=== PATIENT | male | born 1965 | race Caucasian/White ===

== ENCOUNTER 2024-10-19 13:43 | Emergency (ER) | payer MEDICARE, OTHER | END 2024-10-19 18:22 | disposition home or self-care (01) | LOC: ED 13:43 | DX: R53.83 Other fatigue (principal); E03.9 Hypothyroidism, unspecified; F43.10 Post-traumatic stress disorder, unspecified; Z79.51 Long term (current) use of inhaled steroids; Z79.899 Other long term (current) drug therapy ==

== ENCOUNTER 2024-11-23 20:41 | Emergency (ER) | payer MEDICARE, OTHER ==
[~2024-11-23] VITALS: Ht 162.6 cm; Wt 53.5 kg
[~2024-11-23 20:41] MED LIST: ANTIFUNGAL TOP; BETAMETHASONE D15 G2 TOP; CALCIUM 600 MG1 EAC7 PO; CLOTRIMAZOLE45 G1 TOP; DONEPEZIL HCL10 MG PO; EAR DROPS15 ML OU; ELIQUIS5 MG PO; FLUTICASONE PRO16 GM NAS; IBUPROFEN600 MG PO; KETOCONAZOLE120 ML TOP; LEVOTHYROXINE125 MCG PO; LEVOTHYROXINE150 MC1 PO; LORATADINE10 MG PO; METRONIDAZOLE45 G1 TOP; MONTELUKAST SOD10 MG PO; ONDANSETRON HCL4 MG PO; ONDANSETRON ODT4 MG PO; PREVIDENT 500051 GM MM; REFRESH OPTIVE10 ML OU; REGULOID POWDE PO; RISPERIDONE1 MG PO; SERTRALINE HCL50 MG PO; VITAMIN D21250 MCG PO
--- OUTSIDE RECORDS SUMMARY | 2024-11-23 20:47 | XMS ---
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 PHONE: [phone] MARILYNN OJEDA Physician Assistant Guerline Moran PHONE: Unknown [facility] <UNAVAIL> PHONE: [phone] Apolinar has no Care Guidelines for this patient. Norman VISIT COUNT (12 MO.) [address] [place] [address] MELODY Layton TOTAL 7 NOTE: Visits indicate total known visits. ED/UCC VISIT TRACKING (12 MO.) 11/23/2024 20:41 MELODY Aj [place] TYPE: Emergency COMPLAINT: - SOB,CHEST PAIN 10/19/2024 13:43 MELODY Aj [place] TYPE: Emergency COMPLAINT: - WEAKNESS DIAGNOSES: - Hypothyroidism, unspecified - custodial (current) use of inhaled steroids - Other fatigue - Other superintendent terminal (current) drug therapy - Post-traumatic stress disorder, unspecified - Weakness 09/27/2024 05:40 [employer] [place] TYPE: Emergency DIAGNOSES: - Pneumonia, unspecified organism - ABD PAIN 09/08/2024 02:48 [employer] [place] TYPE: Emergency DIAGNOSES: - Pleural effusion, not elsewhere classified - Single subsegmental pulmonary embolism without acute cor pulmonale - abd pain - general 08/29/2024 04:53 [employer] [place] TYPE: Emergency DIAGNOSES: - Down syndrome, unspecified - Personal history of other mental and behavioral disorders - Pneumonitis due to inhalation of food and vomit - Shortness of Breath 06/06/2024 15:40 [facility] [place] TYPE: Emergency DIAGNOSES: - Acute gastritis without bleeding - Nausea with vomiting, unspecified - FEVER VOMITING 02/01/2024 18:34 [facility] [place] TYPE: Emergency DIAGNOSES: - Crushing injury of right hand, initial encounter - Laceration without foreign body of right middle finger without damage to nail, initial encounter - Finger injury INPATIENT VISIT TRACKING (12 MO.) 08/29/2024 10:10 Nancy [facility]IVERA TYPE: Medical Surgical COMPLAINT: - aspiration PNAw/ hx of down syndrome and schizophrenia DIAGNOSES: 0. Pneumonitis due to inhalation of food and vomit 1. Pneumonitis due to inhalation of food and vomit 2. Acidosis, unspecified 3. Down syndrome, unspecified 4. Unspecified dementia, unspecified severity, without behavioral disturbance, psychotic disturbance, mood disturbance, and anxiety 5. Schizophrenia, unspecified 6. Hypothyroidism, unspecified 7. Dermatitis, unspecified 8. Allergy to milk products 9. Hormone replacement therapy [email or web address]
[2024-11-23 21:17] LABS: BASOPHILS 0.4 % (0.2-1.2); EOSINOPHILS 0.3 % (0.8-7.0); HEMATOCRIT 39.1 % (40.1-51.0); HEMOGLOBIN 12.5 g/dL (13.7-17.5); LYMPHOCYTES 5.5 % (21.8-53.1); MCH 28.7 PG (25.7-32.2); MCV 89.9 fL (79.0-92.2); MONOCYTES 8.2 % (5.3-12.2); NEUTROPHILS 85.1 % (34.0-67.9); PLATELET COUNT 246 K/uL (163-337); RBC 4.35 M/uL (4.63-6.08)
[2024-11-23 21:27] LABS: INR 1.43 (0.80-1.30); PROTIME 16.5 Sec (11.2-14.2)
[2024-11-23 21:35] LABS: ALBUMIN 2.4 g/dL (3.4-5.0); ALBUMIN/GLOBULIN RATIO 0.56 (1.1-2.4); ALKALINE PHOSPHATASE 90 U/L (46-116); ALT (SGPT) 12 U/L (14-59); ANION GAP 11.7 (7-21); AST (SGOT) 18 U/L (15-37); BILIRUBIN, TOTAL 0.3 mg/dL (0.2-1.0); BUN/CREATININE RATIO 12.93 (6.0-28.6); CALCIUM 8.7 mg/dL (8.5-10.1); CARBON DIOXIDE 30 mmol/L (21-32); CHLORIDE 103 mmol/L (98-107); CREATININE, SERUM 1.16 mg/dL (0.70-1.30); GLOMERULAR FILTRATION RATE,EST 73 mL/min (>60); MAGNESIUM 1.7 mg/dL (1.8-2.4); POTASSIUM 3.7 mmol/L (3.5-5.1); PROTEIN, TOTAL 6.7 g/dL (6.4-8.2); UREA NITROGEN 15 mg/dL (7-18)
[2024-11-23 22:42] LABS: BILIRUBIN, URINE NEGATIVE (negative); BLOOD/HGB, URINE LARGE (Negative); KETONE, URINE NEGATIVE (Negative); LEUK ESTERASE, URINE SMALL (negative); NITRITE, URINE POSITIVE (negative)
[2024-11-23 22:47] LABS: BACTERIA, URINE 1+ /hpf (negative); CASTS, URINE NONE SEEN \\lpf; COLLECTION TYPE, URINE CLEAN CATCH; CRYSTALS, URINE NONE SEEN (0-1+); EPITHELIAL CELLS, URINE SQUAMOUS 1+ /lpf (0-1+); RED BLOOD CELLS, URINE >50 /hpf (0-5); REFLEX CULTURE, URINE Yes (No); WHITE BLOOD CELLS, URINE >50 /HPF (0-5)
[2024-11-23] MEDS ORDERED: CEFTRIAXONE SODIUM 2 GM in SODIUM CHLORIDE 0.9% 100 ML IV ONE (23:15)
[2024-11-23] MEDS ORDERED: SODIUM CHLORIDE 0.9% 1,000 ML IV PRN ×2 (23:15→23:30)
[2024-11-23] MEDS ORDERED: CEFDINIR 300 MG HOME.PACK PO ONE (23:45)
[2024-11-23] MEDS ORDERED: ONDANSETRON 4 MG HOME.PACK SL ONE (23:45)
[2024-11-23] MEDS ORDERED: ONDANSETRON ODT4 MG PO (23:54)
[2024-11-23] MEDS ORDERED: CEFDINIR300 MG PO (23:54)
[2024-11-24 00:14] VITALS: BP 105/65
--- NOTE | 2024-11-24 13:51 | EKG ---
[facility] [address] [facility] [place] [address] Signed Normal sinus rhythm Nonspecific T wave abnormality Abnormal ECG No previous ECGs available Confirmed by Chucho Westfall MD () on 11/24/2024 1:50:50 PM Electronically Signed By: CHUCHO WESTFALL MD 11/24/24 135 PATIENT NAME: ISIDRO CAGE Electrocardiogram DATE OF : 67 PHYSICIAN: CHUCHO WESTFALL MD REPORT #: [id number] REPORT IS CONFIDENTIAL AND NOT TO BE RELEASED WITHOUT AUTHORIZATION
== END 2024-11-24 00:15 | disposition home or self-care (01) ==
LOC: ED 20:41
PROVIDERS: Family Medicine
DX: N39.0 Urinary tract infection, site not specified (principal); E03.9 Hypothyroidism, unspecified; F43.10 Post-traumatic stress disorder, unspecified; Z79.51 Long term (current) use of inhaled steroids; Z79.899 Other long term (current) drug therapy
CPT/HCPCS: 36415; 51701; 70450; 71045; 74177; 80053; 81001; 83735; 84484; 85025; 85610; 87088; 87186; 93005; 93010; 99285-25; A9270; J0696; J7030; Q9967

== ENCOUNTER 2024-12-06 08:43 | Emergency (ER) | payer MEDICARE, OTHER ==
[~2024-12-06] VITALS: Ht 162.6 cm; Wt 53.5 kg
[~2024-12-06 08:43] MED LIST changes: +CEFDINIR300 MG PO
--- OUTSIDE RECORDS SUMMARY | 2024-12-06 08:50 | XMS ---
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 Events No recent Security Events currently on file CRITERIA MET - 6 ED Visits in 6 Months - [facility] - 2 Visits in 30 Days CARE PROVIDERS -[facility] Dentist: Dietitian [facility] PHONE: [phone] -Gwyn- Dentist: Dietitian [facility] PHONE: [phone] MARILYNN OJEDA Physician Driver'S Education Instructor Guerline Moran PHONE: Unknown [facility]/Center: [facility] WORKERS CLINIC [facility] ([facility]) <UNAVAIL> PHONE: [phone] Apolinar has no Care Guidelines for this patient. Norman VISIT COUNT (12 MO.) [address] [place] [address] 3 MELODY Layton TOTAL 8 NOTE: Visits indicate total known visits. ED/UCC VISIT TRACKING (12 MO.) 12/06/2024 08:43 MELODY Aj [place] TYPE: Emergency COMPLAINT: - ABD PAIN 11/23/2024 20:41 [facility] Aj [place] TYPE: Emergency COMPLAINT: - SOB,CHEST PAIN DIAGNOSES: - Chest pain, unspecified - Hypothyroidism, unspecified - penitentiary (current) use of inhaled steroids - Other prison (current) drug therapy - Post-traumatic stress disorder, unspecified - Urinary tract infection, site not specified 10/19/2024 13:43 M[facility] Aj [place] TYPE: Emergency COMPLAINT: - WEAKNESS DIAGNOSES: - Hypothyroidism, unspecified - roasterman (current) use of inhaled steroids - Other fatigue - Other prison (current) drug therapy - Post-traumatic stress disorder, unspecified - Weakness 09/27/2024 05:40 [facility] [place] TYPE: Emergency DIAGNOSES: - Pneumonia, unspecified organism - ABD PAIN 09/08/2024 02:48 [facility] [place] TYPE: Emergency DIAGNOSES: - Pleural effusion, not elsewhere classified - Single subsegmental pulmonary embolism without acute cor pulmonale - abd pain - general 08/29/2024 04:53 [facility] [place] TYPE: Emergency DIAGNOSES: - Down syndrome, unspecified - Personal history of other mental and behavioral disorders - Pneumonitis due to inhalation of food and vomit - Shortness of Breath 06/06/2024 15:40 [facility] [place] TYPE: Emergency DIAGNOSES: - Acute gastritis without bleeding - Nausea with vomiting, unspecified - FEVER VOMITING 02/01/2024 18:34 [facility] [place] TYPE: Emergency DIAGNOSES: - Crushing [...] to milk products 9. Hormone replacement therapy [email or web address]
[2024-12-06 09:58] LABS: BASOPHILS 1.1 % (0.2-1.2); EOSINOPHILS 1.9 % (0.8-7.0); LYMPHOCYTES 12.7 % (21.8-53.1); MCH 29.2 PG (25.7-32.2); MCHC 31.9 g/dL (32.3-36.5); MCV 91.3 fL (79.0-92.2); MONOCYTES 9.3 % (5.3-12.2); NEUTROPHILS 74.1 % (34.0-67.9); RBC 4.15 M/uL (4.63-6.08)
[2024-12-06 10:09] LABS: INR 1.22 (0.80-1.30); PROTIME 14.6 Sec (11.2-14.2)
[2024-12-06 10:19] LABS: ALT (SGPT) 16.0 U/L (14-59); AST (SGOT) 17.0 U/L (15-37); GLOMERULAR FILTRATION RATE,EST 80.0 mL/min (>60); PROTEIN, TOTAL 6.4 g/dL (6.4-8.2); UREA NITROGEN 12.0 mg/dL (7-18)
[2024-12-06 12:12] VITALS: BP 112/74
== END 2024-12-06 12:12 | disposition home or self-care (01) ==
LOC: ED 08:43
PROVIDERS: Emergency Medicine
DX: R10.84 Generalized abdominal pain (principal); L98.419 Non-pressure chronic ulcer of buttock with unspecified severity; F43.10 Post-traumatic stress disorder, unspecified; Z79.890 Hormone replacement therapy
CPT/HCPCS: 36415; 51702; 74177; 80053; 83690; 84484; 85025; 85610; 99284-25; Q9967

== ENCOUNTER 2024-12-17 10:43 | Emergency (ER) | payer MEDICARE, OTHER ==
[~2024-12-17] VITALS: Ht 162.6 cm; Wt 53.5 kg
--- OUTSIDE RECORDS SUMMARY | 2024-12-17 10:47 | XMS ---
PreManage Notification: ISIDRO CAGE Security Kennel Hand Events No recent Security Events currently on file CRITERIA MET - 6 ED Visits in 6 Months - [facility] - 2 Visits in 30 Days CARE PROVIDERS -[facility] Dentist: Systems Design Engineer [facility] [place] PHONE: [phone] -Gwyn- Dentist: Systems Design Engineer [facility] PHONE: [phone] MARILYNN OJEDA Physician Automobiles Salesperson Guerline Moran PHONE: Unknown [facility]/Center: [facility] WORKERS CLINIC [facility] ([facility]) <UNAVAIL> PHONE: [phone] Apolinar has no Care Guidelines for this patient. Norman VISIT COUNT (12 MO.) 5 [facility] 4 MELODY Layton TOTAL 9 NOTE: Visits indicate total known visits. 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 - Post-traumatic stress disorder, unspecified - Unspecified abdominal pain 11/23/2024 20:41 MELODY Aj [place] TYPE: Emergency COMPLAINT: - SOB,CHEST PAIN DIAGNOSES: - Chest pain, unspecified - Hypothyroidism, unspecified - middle or intermediate school principal (current) use of inhaled steroids - Other detention (current) drug therapy - Post-traumatic stress disorder, unspecified - Urinary tract infection, site not specified 10/19/2024 13:43 MELODY Aj [place] TYPE: Emergency COMPLAINT: - WEAKNESS DIAGNOSES: - Hypothyroidism, unspecified - middle or intermediate school principal (current) use of inhaled steroids - Other fatigue - Other exterminator helper (current) drug therapy - Post-traumatic stress disorder, unspecified - Weakness 09/27/2024 05:40 [facility] [employer] [place] TYPE: Emergency DIAGNOSES: - Pneumonia, unspecified organism - ABD PAIN 09/08/2024 02:48 [facility] [employer] [place] TYPE: Emergency DIAGNOSES: - Pleural effusion, not elsewhere classified - Single subsegmental pulmonary embolism without acute cor pulmonale - abd pain - general 08/29/2024 04:53 [facility] [place] TYPE: Emergency DIAGNOSES: - Down syndrome, unspecified - Personal history of other mental and behavioral disorders - Pneumonitis due to inhalation of food and vomit - Shortness of Breath 06/06/2024 15:40 [facility] [place] TYPE: Emergency DIAGNOSES: - Acute gastritis without bleeding - Nausea with vomiting, unspecified - FEVER VOMITING 02/01/2024 18:34 [facility] TYPE: Emergency DIAGNOSES: - Crushing injury of right hand, initial encounter - Laceration without foreign body of right middle finger without damage to nail, initial encounter - Finger injury INPATIENT VISIT TRACKING (12 MO.) 08/29/2024 10:10 Nancy [facility]ers [place] TYPE: Medical Surgical COMPLAINT: - aspiration PNAw/ [...] to milk products 9. Hormone replacement therapy [email or web address]
[2024-12-17 11:46] VITALS: BP 82/69
== END 2024-12-17 11:46 | disposition home or self-care (01) ==
LOC: ED 10:43
DX: L89.329 Pressure ulcer of left buttock, unspecified stage (principal); L89.319 Pressure ulcer of right buttock, unspecified stage; F43.10 Post-traumatic stress disorder, unspecified; E03.9 Hypothyroidism, unspecified; Z79.899 Other long term (current) drug therapy; Z79.51 Long term (current) use of inhaled steroids
CPT/HCPCS: 99283

== ENCOUNTER 2025-01-03 08:03 | Emergency (ER) | payer MEDICARE, OTHER ==
[~2025-01-03] VITALS: Ht 162.6 cm; Wt 54.7 kg
--- OUTSIDE RECORDS SUMMARY | 2025-01-03 08:10 | XMS ---
PreManage Notification: ISIDRO CAGE Security Denture Technician Events No recent Security Events currently on file CRITERIA MET - 6 ED Visits in 6 Months - [facility] - 2 Visits in 30 Days CARE PROVIDERS -[facility] Dentist: Filter Tender Current [place] PHONE: [phone] -[facility] Dentist: Filter Tender Current [place] PHONE: [phone] -Gwyn- Dentist: Filter Tender Current [facility] PHONE: [phone] MARILYNN OJEDA Physician Assistant Guerline Moran PHONE: Unknown [facility] Clinic[facility]Center: [facility] <[facility] PHONE: [phone] Apolinar has no Care Guidelines for this patient. EIda VISIT COUNT (12 MO.) 5 MELODY Ewing [facility] TOTAL 10 NOTE: Visits indicate total known visits. ED/UCC VISIT TRACKING (12 MO.) 01/03/2025 08:04 MELODY Aj [place] TYPE: Emergency COMPLAINT: - URINE PROBLEM 12/17/2024 10:44 M[facility]ODY Aj [place] TYPE: Emergency COMPLAINT: - SKIN PROBLEM DIAGNOSES: - Hypothyroidism, unspecified - penitentiary (current) use of inhaled steroids - Other long term care administrator (current) drug therapy - Post-traumatic stress disorder, unspecified - Pressure ulcer of left buttock, unspecified stage - Pressure ulcer of right buttock, unspecified stage - Unspecified abdominal pain 12/06/2024 08:43 [facility] [place] TYPE: Emergency [...] (current) use of inhaled steroids - Other long term care administrator (current) drug therapy - Post-traumatic stress disorder, unspecified - Urinary tract infection, site not specified 10/19/2024 13:43 [facility] Aj [place] TYPE: Emergency COMPLAINT: - WEAKNESS DIAGNOSES: - Hypothyroidism, unspecified - keno terminal operator (current) use of inhaled steroids - Other fatigue - Other long term care administrator (current) drug therapy - Post-traumatic stress disorder, unspecified - Weakness 09/27/2024 05:40 [facility] [place] TYPE: Emergency DIAGNOSES: - Pneumonia, unspecified organism - ABD PAIN 09/08/2024 02:48 [facility] [place] TYPE: Emergency DIAGNOSES: - Pleural effusion, not elsewhere classified - Single subsegmental pulmonary embolism without acute cor pulmonale - abd pain - general 08/29/2024 04:53 [facility] [place] TYPE: Emergency DIAGNOSES: - Down syndrome, unspecified - Personal history of other mental and behavioral disorders - Pneumonitis due to inhalation of food and vomit - Shortness of Breath 06/06/2024 15:40 [facility] [place] TYPE: Emergency DIAGNOSES: - Acute gastritis without bleeding - Nausea with vomiting, unspecified - FEVER VOMITING 02/01/2024 18:34 [facility] [place] TYPE: Emergency DIAGNOSES: - Crushing injury of right hand, initial encounter - Laceration without foreign body of right middle finger without damage to nail, initial encounter - Finger injury INPATIENT VISIT TRACKING (12 MO.) 08/29/2024 10:10 Nancy Bradley Robinson [place] TYPE: Medical Surgical COMPLAINT: - aspiration [...] to milk products 9. Hormone replacement therapy [email or web address]
[2025-01-03] MEDS ORDERED: LEVOTHYROXINE175 MCG PO (08:25)
[2025-01-03 09:26] LABS: BLOOD/HGB, URINE SMALL (Negative); KETONE, URINE NEGATIVE (Negative); LEUK ESTERASE, URINE NEGATIVE (negative); NITRITE, URINE NEGATIVE (negative)
[2025-01-03 09:32] LABS: BACTERIA, URINE NONE SEEN /hpf (negative); CASTS, URINE NONE SEEN \\lpf; CRYSTALS, URINE NONE SEEN (0-1+); EPITHELIAL CELLS, URINE SQUAMOUS 1+ /lpf (0-1+); REFLEX CULTURE, URINE No (No)
[2025-01-03 10:20] VITALS: BP 106/72
== END 2025-01-03 10:20 | disposition home or self-care (01) ==
LOC: ED 08:03
PROVIDERS: Emergency Medicine
DX: R31.9 Hematuria, unspecified (principal); F43.10 Post-traumatic stress disorder, unspecified; G47.33 Obstructive sleep apnea (adult) (pediatric); Z79.899 Other long term (current) drug therapy
CPT/HCPCS: 51798; 81001; 99283

== ENCOUNTER 2025-03-12 13:26 | Emergency (ER) | payer MEDICARE, OTHER ==
[~2025-03-12] VITALS: Ht 162.6 cm; Wt 54.7 kg
--- OUTSIDE RECORDS SUMMARY | ~2025-03-12 | XMS | Continuity of Care Document ---
Demographics + + + | Address | [address] | | | [place] [address] | + + + | Preferred Language | Unknown | + + + | Marital Status | Never | + + + | Hoahaoism Affiliation | Unknown | + + + | Race | White | + + + | Ethnic Group | Not or | + + + Author + + + | Author | [facility] | + + + | Organization | [facility] | + + + | Address | [address] | | | [place] [address] | + + + | Phone | | + + + Care Team Providers + + + + | Care Business Information Consultant Name | Role | Phone | + [...] | [facility] - | | | | [facility] | + + + + | (no date) | ONDANSETRON | [facility] | | | | [facility] | + + + + | (no date) | KETOCONAZOLE | [facility] | | | | [facility] | + + + + | (no date) | KETOCONAZOLE | [facility] | | | | [facility] | + + + + | (no date) | | [facility] | | | CARBOXYMETHYL/GLYCERIN/POLY | [facility] | | | 80 | | + + + + | (no date) | | [facility] | | | CARBOXYMETHYL/GLYCERIN/POLY | [facility] | | | 80 | | + + + + | (no date) | APIXABAN | [facility] | | | | [facility] | + + + + | (no date) | APIXABAN | [facility] | | | | [facility] | + + + + | (no date) | Ergocalciferol (Vitamin | [facility] | | | D2) | [facility] | + + + + | (no date) | Ergocalciferol (Vitamin | [facility] | | | D2) | [facility] | + + + + | (no date) | FLUTICASONE PROPIONATE 50 | [facility] | | | MCG | [facility] | + + + + | (no date) | FLUTICASONE PROPIONATE 50 | [facility] | | | MCG | [facility] | + + + + | (no date) | IBUPROFEN | [facility] | | | | [facility] | + + + + | (no date) | IBUPROFEN | [facility] | | | | [facility] | + + + + | (no date) | MONTELUKAST SODIUM | [facility] | | | | [facility] | + + + + | (no date) | MONTELUKAST SODIUM | [facility] | | | | [facility] | + + + + | (no date) | BETAMETHASONE DIPROPIONATE | [facility] | | | | [facility] | + + + + | (no date) | BETAMETHASONE DIPROPIONATE | [facility] | | | | [facility] | + + + + | (no date) | Clotrimazole | [facility] | | | | [facility] | + + + + | (no date) | Clotrimazole | [facility] | | | | [facility] | + + + + | (no date) | LORATADINE | [facility] | | | | [facility] | + + + + | (no date) | LORATADINE | [facility] | | | | [facility] | + + + + | (no date) | METRONIDAZOLE | [facility] | | | | [facility] | + + + + | (no date) | METRONIDAZOLE | [facility] | | | | [facility] | + + + + | (no date) | RISPERIDONE | [facility] | | | | [facility] | + + + + | (no date) | RISPERIDONE | [facility] | | | | [facility] | + + + + | (no date) | SERTRALINE HCL | [facility] | | | | [facility] | + + + + | (no date) | SERTRALINE HCL | [facility] | | | | [facility] | + + + + | (no date) | TOLNAFTATE | [facility] | | | | [facility] | + + + + | (no date) | TOLNAFTATE | [facility] | | | | [facility] | + + + + | (no date) | Tolnaftate | [facility] | | | | [facility] | + + + + | (no date) | Tolnaftate | [facility] | | | | [facility] | + + + + | (no date) | Calcium Carbonate/Vitamin | [facility] | | | D3 | [facility] | + + + + | (no date) | Calcium Carbonate/Vitamin | [facility] | | | D3 | [facility] | + + + + | (no date) | SODIUM FLUORIDE | [facility] | | | | [facility] | + + + + | (no date) | SODIUM FLUORIDE | [facility] | | | | [facility] | + + + + | (no date) | CARBAMIDE PEROXIDE | [facility] | | | | [facility] | + + + + | (no date) | CARBAMIDE PEROXIDE | [facility] | | | | [facility] | + + + + | (no date) | LEVOTHYROXINE SODIUM | [facility] | | | | [facility] | + + + + | (no date) | LEVOTHYROXINE SODIUM | [facility] | | | | [facility] | + + + + | (no date) | LEVOTHYROXINE SODIUM | [facility] | | | | [facility] | + + + + | (no date) | LEVOTHYROXINE SODIUM | [facility] | | | | [facility] | + + + + | (no date) | DONEPEZIL HCL | [facility] | | | | [facility] | + + + + | (no date) | DONEPEZIL HCL | [facility] | | | | [facility] | + + + + Problems + + + + | date | description | facility | + + + + | 2024-12-17 00:00 | Pressure injury of skin of | [facility] | | | buttock | [facility] | + + + + | 2024-12-17 00:00 | Pressure injury of skin of | [facility] | | | buttock | [facility] | + + + + | 2025-01-03 00:00 | Hematuria | [facility] | | | | [facility] | + + + + | 2025-01-03 00:00 | Hematuria | [facility] | | | | [facility] | + + + + Procedures [...] 5 | + + + + + +---------+ [...] | (missing) | | UrnS Micro | 09:21:07 | [facility] | | [...] 15 | + + + + + +---------+ [...] | (missing) | | Ql Strip | :21:07 | [facility] | [facility] | | | | + + + + + + + + + | Result panel 17 | + + + + + + + + + | Courtney Ur | 2025-01-03 | | NEGATIVE | [...] + + + + + + | [facility] | 2025-01-03 | | NEGATIVE | [...] 19 | + + + + + +---------+ [...] 20 | + + + + + +---------+ [...] 21 | + + + + + +-------+ [...] 0-1 | (missing) | (missing) | | [facility] | 09:21:07 | [facility] | | | | | [...] | (missing) | | Danya Micro | :21:07 | [facility] | | | [...] 33 | + + + + + +------+ + + | Bacteria Ur | 2025-01-03 | | No | (missing) | (missing) | | Cult | 09:21:07 | [facility] | [facility] | | | | + + + +------+ + + + + | Result panel 34 | + + + + + + [...] + + + + + + | Lazaro Rodriguez | 2025-01-03 | | NEGATIVE | [...] 37 | + + + + + +---------+ + + | Luis Miguel Rodriguez | 2025-01-03 | | 1.020 | (missing) | (missing) | | Strip | 09:21:07 | [facility] | [facility] | | | | + + + +---------+ + + + + | Result panel 38 | + + + + + +---------+ [...] NEGATIVE | (missing) | (missing) | | Strip-stephanie | 09:21:07 | [facility] | | | [...] | [facility] - | | | | [facility] | + + + + | (no date) | Unknown if ever smoked | [facility] | | | | [facility] | + + + + Vital Signs + + + +---------+ | date | measurement | value | units | + + + +---------+ | 2024-12-17 00:00 | BMI | 20.2 | kg/m2 | + + + +---------+ | 2024-12-17 00:00 | BP_diastolic | 69 | mmHg | + + + +---------+ | 2024-12-17 00:00 | BP_systolic | 82 | mmHg | + + + +---------+ | 2024-12-17 00:00 | heart_rate | 74 | /min | + + + +---------+ | 2024-12-17 00:00 | height_metric | 162.56 | cm | + + + +---------+ | 2024-12-17 00:00 | height_standard | 64 | in | + + + +---------+ | 2024-12-17 00:00 | o2_saturation | 100 | % | + + + +---------+ | 2024-12-17 00:00 | respiration_rate | 18 | /min | + + + +---------+ | 2024-12-17 00:00 | temperature_metric | 36.67 | C | | | | | | + + + +---------+ | 2024-12-17 00:00 | | 98 | F | | | temperature_standar | | | | | d | | | + + + +---------+ | 2024-12-17 00:00 | weight_metric | 53.5 | kg | + + + +---------+ | 2024-12-17 00:00 | weight_standard | 117.95 | lb | + + + +---------+ [...]
[~2025-03-12 13:26] MED LIST changes: +LEVOTHYROXINE175 MCG PO
--- OUTSIDE RECORDS SUMMARY | 2025-03-12 13:33 | XMS ---
PreManage Notification: ISIDRO CAGE Security Straightening Machine Operator Events No recent Security Events currently on file CRITERIA MET - 6 ED Visits in 6 Months CARE PROVIDERS -[facility] Dentist: Service Advocate Contact Guerline Pascal PHONE: [phone] -[facility] Dentist: Service Advocate Contact Guerline Yung PHONE: [phone] -Gwyn- Dentist: Service Advocate Contact Current [facility] PHONE: [phone] MAIRLYNN OJEDA Physician Video Game Developer Guerline Moarn PHONE: Unknown [facility] Clinic[facility] Qualified [facility] Current WORKERS CLINIC [facility] ([facility]) <UNAVAIL> PHONE: [phone] Apolinar has no Care Guidelines for this patient. Norman VISIT COUNT (12 MO.) 6 MELODY [facility] TOTAL 10 NOTE: Visits indicate total known visits. ED/UCC VISIT TRACKING (12 MO.) 03/12/2025 13:27 MELODY Aj [place] TYPE: Emergency COMPLAINT: - BLOOD IN URINE 01/03/2025 08:04 M[facility]ODY Aj [place] TYPE: Emergency COMPLAINT: - URINE PROBLEM DIAGNOSES: - Asymptomatic microscopic hematuria - Hematuria, unspecified - Obstructive sleep apnea (adult) (pediatric) - Other truck terminal manager (current) drug therapy - Post-traumatic stress disorder, unspecified - Sleep apnea, unspecified 12/17/2024 10:44 MELODY Aj [place] TYPE: Emergency COMPLAINT: - SKIN PROBLEM DIAGNOSES: - Hypothyroidism, unspecified - snf (current) use of inhaled steroids - Other chcf (current) drug therapy - Post-traumatic stress disorder, [...] Chest pain, unspecified - Hypothyroidism, unspecified - snf (current) use of inhaled steroids - Other chcf (current) drug therapy - Post-traumatic stress disorder, unspecified - Urinary tract infection, site not specified 10/19/2024 13:43 MELODY Aj [place] TYPE: Emergency COMPLAINT: - WEAKNESS DIAGNOSES: - Hypothyroidism, unspecified - snf (current) use of inhaled steroids - Other fatigue - Other chcf (current) drug therapy - Post-traumatic stress disorder, unspecified - Weakness 09/27/2024 05:40 [facility] [place] TYPE: Emergency DIAGNOSES: - Pneumonia, unspecified organism - ABD PAIN 09/08/2024 02:48 [facility] [place] TYPE: Emergency DIAGNOSES: - Pleural effusion, not elsewhere classified - Single subsegmental thrombotic pulmonary embolism without acute cor pulmonale - abd pain - general 08/29/2024 04:53 [facility] [place] TYPE: Emergency DIAGNOSES: - Down syndrome, unspecified - Personal history of other mental and behavioral disorders - Pneumonitis due to inhalation of food and vomit - Shortness of Breath 06/06/2024 15:40 [facility] [place] TYPE: Emergency DIAGNOSES: - Acute gastritis without bleeding - Nausea with vomiting, unspecified - FEVER VOMITING INPATIENT VISIT TRACKING (12 MO.) 08/29/2024 10:10 Nancy Bradley Robinson [place] TYPE: Medical Surgical COMPLAINT: - aspiration PNAw/ [...] to milk products 9. Hormone replacement therapy [email or web address]
[2025-03-12 14:08] LABS: BLOOD/HGB, URINE MODERATE (Negative); KETONE, URINE NEGATIVE (Negative); LEUK ESTERASE, URINE NEGATIVE (negative); NITRITE, URINE NEGATIVE (negative)
[2025-03-12 14:16] LABS: BACTERIA, URINE NONE SEEN /hpf (negative); CASTS, URINE NONE SEEN \\lpf; CRYSTALS, URINE NONE SEEN (0-1+); EPITHELIAL CELLS, URINE SQUAMOUS 1+ /lpf (0-1+); REFLEX CULTURE, URINE No (No)
[2025-03-12 15:35] VITALS: BP 105/83
== END 2025-03-12 15:36 | disposition home or self-care (01) ==
LOC: ED 13:26
PROVIDERS: Emergency Medicine
DX: R31.29 Other microscopic hematuria (principal); E03.9 Hypothyroidism, unspecified; Z79.890 Hormone replacement therapy; Z79.899 Other long term (current) drug therapy
CPT/HCPCS: 81001; 99283

== ENCOUNTER 2025-03-30 17:12 | Emergency (ER) | payer MEDICARE, OTHER ==
[~2025-03-30] VITALS: Ht 162.6 cm; Wt 52.5 kg
--- OUTSIDE RECORDS SUMMARY | ~2025-03-30 | XMS | Continuity of Care Document ---
Demographics + + + | Address | [address] | | | [place] [address] | + + + | Preferred Language | Unknown | + + + | Marital Status | Never | + + + | Hoahaoism Affiliation | Unknown | + + + | Race | White | + + + | Ethnic Group | Not or | + + + Author + + + | Author | [facility] | + + + | Organization | [facility] | + + + | Address | [address] | | | [place] [address] | + + + | Phone | | + + + Care Team Providers + + + + | Care Drum Maker Name | Role | Phone | + + + + Unavailable | Unavailable | + + + + Unavailable | Unavailable | + + + + Unavailable | Unavailable | + + + + Allergies and Intolerances + + + + + + | date | description | facility | reaction | severity | + + + + + + | 2025-01-03 | UNK | [facility] - | (no [...] (no date) | ONDANSETRON | [facility] - | | | | [facility] | + + + + | (no date) | ONDANSETRON | [facility] | | | | [facility] | + + + + | (no date) | KETOCONAZOLE | [facility] | | | | [facility] | + + + + | (no date) | KETOCONAZOLE | [facility] | | | | [facility] | + + + + | (no date) | | [facility] | | | CARBOXYMETHYL/GLYCERIN/POLY | [facility] | | | 80 | | + + + + | (no date) | | [facility] | | | CARBOXYMETHYL/GLYCERIN/POLY | [facility] | | | 80 | | + + + + | (no date) | APIXABAN | [facility] | | | | [facility] | + + + + | (no date) | APIXABAN | [facility] | | | | [facility] | + + + + | (no date) | Ergocalciferol (Vitamin | [facility] | | | D2) | [facility] | + + + + | (no date) | Ergocalciferol (Vitamin | [facility] | | | D2) | [facility] | + + + + | (no date) | FLUTICASONE PROPIONATE 50 | [facility] | | | MCG | [facility] | + + + + | (no date) | FLUTICASONE PROPIONATE 50 | [facility] | | | MCG | [facility] | + + + + | (no date) | IBUPROFEN | [facility] | | | | [facility] | + + + + | (no date) | IBUPROFEN | [facility] | | | | [facility] | + + + + | (no date) | MONTELUKAST SODIUM | [facility] | | | | [facility] | + + + + | (no date) | MONTELUKAST SODIUM | [facility] | | | | [facility] | + + + + | (no date) | BETAMETHASONE DIPROPIONATE | [facility] | | | | [facility] | + + + + | (no date) | BETAMETHASONE DIPROPIONATE | [facility] | | | | [facility] | + + + + | (no date) | Clotrimazole | [facility] | | | | [facility] | + + + + | (no date) | Clotrimazole | [facility] | | | | [facility] | + + + + | (no date) | LORATADINE | [facility] | | | | [facility] | + + + + | (no date) | LORATADINE | [facility] | | | | [facility] | + + + + | (no date) | METRONIDAZOLE | [facility] | | | | [facility] | + + + + | (no date) | METRONIDAZOLE | [facility] | | | | [facility] | + + + + | (no date) | RISPERIDONE | [facility] | | | | [facility] | + + + + | (no date) | RISPERIDONE | [facility] | | | | [facility] | + + + + | (no date) | SERTRALINE HCL | [facility] | | | | [facility] | + + + + | (no date) | SERTRALINE HCL | [facility] | | | | [facility] | + + + + | (no date) | TOLNAFTATE | [facility] | | | | [facility] | + + + + | (no date) | TOLNAFTATE | [facility] | | | | [facility] | + + + + | (no date) | Tolnaftate | [facility] | | | | [facility] | + + + + | (no date) | Tolnaftate | [facility] | | | | [facility] | + + + + | (no date) | Calcium Carbonate/Vitamin | [facility] | | | D3 | [facility] | + + + + | (no date) | Calcium Carbonate/Vitamin | [facility] | | | D3 | [facility] | + + + + | (no date) | SODIUM FLUORIDE | [facility] | | | | [facility] | + + + + | (no date) | SODIUM FLUORIDE | [facility] | | | | [facility] | + + + + | (no date) | CARBAMIDE PEROXIDE | [facility] | | | | [facility] | + + + + | (no date) | CARBAMIDE PEROXIDE | [facility] | | | | [facility] | + + + + | (no date) | LEVOTHYROXINE SODIUM | [facility] | | | | [facility] | + + + + | (no date) | LEVOTHYROXINE SODIUM | [facility] | | | | [facility] | + + + + | (no date) | LEVOTHYROXINE SODIUM | [facility] | | | | [facility] | + + + + | (no date) | LEVOTHYROXINE SODIUM | [facility] | | | | [facility] | + + + + | (no date) | DONEPEZIL HCL | [facility] | | | | [facility] | + + + + | (no date) | DONEPEZIL HCL | [facility] | | | | [facility] | + + + + Problems + + + + | date | description | facility | + + + + | 2025-01-03 00:00 | Hematuria | [facility] | | | | [facility] | + + + + | 2025-01-03 00:00 | Hematuria | [facility] | | | | [facility] | + + + + Procedures No information. Results/Labs +--------+--------+ +---------+--------+---------+ | test | date | facility | value | unit | notes | +--------+--------+ +---------+--------+---------+ + + | Result panel 1 | + + + + + + + + + | Color Ur | 2025-01-03 | | YELLOW | (missing) | (missing) | | Auto | 09:21:07 | [facility] | | | | + + + + + + + + + | Result panel 2 | + + + + + +---------+ + + | Character | 2025-01-03 | | CLEAR | (missing) | (missing) | | Ur | 09:21:07 | [facility] | [facility] | | | | + + + +---------+ + + + + | Result panel 3 | + + + + + + + + + | Glucose Ur | 2025-01-03 | | NEGATIVE | (missing) | (missing) | | Ql Strip | 09:21:07 | [facility] | | [facility] | | | | + + + + + + + + + | Result panel 4 | + + + + + + + + + | Courtney Rodriguez | 2025-01-03 | | NEGATIVE | (missing) | (missing) | | Ql Strip | 09:21:07 | [facility] | | [facility] | | [facility] | | | | + + + + + + + + + | Result panel 5 | + + + + + + + + + | Ketones Ur | 2025-01-03 | | NEGATIVE | (missing) | (missing) | | Ql Strip | 09:21:07 | [facility] | | | | [facility] | | | [facility] | | | | + + + + + + + + + | Result panel 6 | + + + + + +---------+ + + | Sp Gr Ur | 2025-01-03 | | 1.020 | (missing) | (missing) | | Strip | 09:21:07 | [facility] | | | [facility] | | | | + + + +---------+ + + + + | Result panel 7 | + + + + + +---------+ + + | Hgb Ur Ql | 2025-01-03 | | SMALL | (missing) | (missing) | | Strip | 09:21:07 | [facility] | | | [facility] | | | | + + + +---------+ + + + + | Result panel 8 | + + + + + +-------+ + + | pH Ur Strip | 2025-01-03 | | 6.5 | (missing) | (missing) | | | 09:21:07 | [facility] | | | | + + + +-------+ + + + + | Result panel 9 | + + + + + + + + + | Prot Ur | 2025-01-03 | | NEGATIVE | (missing) | (missing) | | Strip-mCnc | 09:21:07 | [facility] | | | [facility] | | | | + + + + + + + + + | Result panel 10 | + + + + + + + + + | | 2025-01-03 | | NORMAL | (missing) | (missing) | | Urobilinogen | 09:21:07 | [facility] | | | | | Ur | [facility] | Strip-[facility]nc | | [facility] | | | | + + + + + + + + + | Result panel 11 | + + + + + + + + + | Nitrite Ur | 2025-01-03 | | NEGATIVE | (missing) | (missing) | | Ql Strip | 09:21:07 | [facility] | | | | + + + + + + + + + | Result panel 12 | + + + + + + + + + | Leukocyte | 2025-01-03 | | NEGATIVE | (missing) | (missing) | | esterase Ur | 09:21:07 | [facility] | | | | | Ql Strip | [facility] | [facility] | | | | + + + + + + + + + | Result panel 13 | + + + + + +---------+ + + | RBC #/area | 2025-01-03 | | 12-20 | (missing) | (missing) | | UrnS HPF | 09:21:07 | [facility] | | | | | | [facility] | | | | + + + +---------+ + + + + | Result panel 14 | + + + + + +-------+ + + | WBC #/area | 2025-01-03 | | 0-1 | (missing) | (missing) | | UrnS HPF | 09:21:07 | [facility] | | | [facility] | | | | + + + +-------+ + + + + | Result panel 15 | + + + + + + + + + | Epi Cells | 2025-01-03 | | SQUAMOUS 1+ | (missing) | (missing) | | #/area UrnS | 09:21:07 | [facility] | | | | | HPF | [facility] | | [facility] | | | | + + + + + + + + + | Result panel 16 | + + + + + + + + + | Crystals | 2025-01-03 | | NONE SEEN | (missing) | (missing) | | UrChe Micro | 09::07 | [facility] | | | | | | | - | | | | | | | [facility] | | | | + + + + + + + + + | Result panel 17 | + + + + + + + + + | Bacteria | 2025-01-03 | | NONE SEEN | (missing) | (missing) | | #/area UrnS | : | [facility] | | | | | HPF [facility] | | | | + + + + + + + + + | Result panel 18 | + + + + + + + + + | Casts | 2025-01-03 | | NONE SEEN | (missing) | (missing) | | #/area UrnS | ::07 | [facility] | | | | | LPF | [facility] | | [facility] | | | | + + + + + + + + + | Result panel 19 | + + + + + +------+ + + | Bacteria Ur | 2025-01-03 | | No | (missing) | (missing) | | Cult | :21:07 | [facility] | | | | | [facility] | [facility] | | | | + + + +------+ + + + + | Result panel 20 | + + + + + + + + + | Urn Spec | 2025-01-03 | | CLEAN CATCH | (missing) | (missing) | | Collect Meth | 09:21:07 | [facility] | | | | | Ur | [facility] | | [facility] | | | | + + + + + + + + + | Result panel 21 | + + + + + + + + + | Color Ur | 2025-01-03 | | YELLOW | (missing) | (missing) | | Auto | 09:21:07 | [facility] | | | | | [facility] | | [facility] | | | | + + + + + + + + + | Result panel 22 | + + + + + +---------+ + + | Character | 2025-01-03 | | CLEAR | (missing) | (missing) | | Ur | 09:21:07 | [facility] | | | [facility] | | | | + + + +---------+ + + + + | Result panel 23 | + + + + + + + + + | Glucose Ur | 2025-01-03 | | NEGATIVE | (missing) | (missing) | | Ql Strip | 09::07 | [facility] | | | | | [facility] | [facility] | | | | + + + + + + + + + | Result panel 24 | + + + + + + + + + | Bilirub Ur | 2025-01-03 | | NEGATIVE | (missing) | (missing) | | Ql Strip | ::07 | [facility] | | | | | | [facility] | [facility] | | | | + + + + + + + + + | Result panel 25 | + + + + + + + + + | Ketones Ur | 2025-01-03 | | NEGATIVE | (missing) | (missing) | | Ql Strip | 09:21:07 | [facility] | | | | | [facility] | | | | + + + + + + + + + | Result panel 26 | + + + + + +---------+ + + | Sp Gr Ur | 2025-01-03 | | 1.020 | (missing) | (missing) | | Strip | 09:21:07 | [facility] | | | [facility] | | | | + + + +---------+ + + + + | Result panel 27 | + + + + + +---------+ + + | Hgb Ur Ql | 2025-01-03 | | SMALL | (missing) | (missing) | | Strip | 09:21:07 | [facility] | | | | | | [facility] | | | | + + + +---------+ + + + + | Result panel 28 | + + + + + +-------+ + + | pH Ur Strip | 2025-01-03 | | 6.5 | (missing) | (missing) | | | 09:21:07 | [facility] | | | [facility] | | | | + + + +-------+ + + + + | Result panel 29 | + + + + + + + + + | Prot Ur | 2025-01-03 | | NEGATIVE | (missing) | (missing) | | [facility] | 09:21:07 | [facility] | | | [facility] | | | | + + + + + + + + + | Result panel 30 | + + + + + + + + + | | 2025-01-03 | | NORMAL | (missing) | (missing) | | Urobilinogen | 09:21:07 | [facility] | | | | | Ur | | - [facility] | [facility] | | [facility] | [facility] | | | | + + + + + + + + + | Result panel 31 | + + + + + + + + + | Nitrite Ur | 2025-01-03 | | NEGATIVE | (missing) | (missing) | | Ql Strip | 09:21:07 | [facility] | | | | | [facility] | | | | + + + + + + + + + | Result panel 32 | + + + + + + + + + | Leukocyte | 2025-01-03 | | NEGATIVE | (missing) | (missing) | | esterase Ur | 09:21:07 | [facility] | | | | | Ql Strip | [facility] | [facility] | | | | + + + + + + + + + | Result panel 33 | + + + + + +---------+ + + | RBC #/area | 2025-01-03 | | 12-20 | (missing) | (missing) | | UrnS HPF | 09:21:07 | [facility] | | | | | | [facility] | | | | + + + +---------+ + + + + | Result panel 34 | + + + + + +-------+ + + | WBC #/area | 2025-01-03 | | 0-1 | (missing) | (missing) | | UrnS HPF | 09:21:07 | [facility] | | | | + + + +-------+ + + + + | Result panel 35 | + + + + + + + + + | Epi Cells | 2025-01-03 | | SQUAMOUS 1+ | (missing) | (missing) | | #/area UrnS | 09:21:07 | [facility] | | | | | HPF | [facility] | | | | + + + + + + + + + | Result panel 36 | + + + + + + + + + | Crystals | 2025-01-03 | | NONE SEEN | (missing) | (missing) | | Danya Micro | 09:21:07 | [facility] | | | | [facility] | | | | + + + + + + + + + | Result panel 37 | + + + + + + + + + | Bacteria | 2025-01-03 | | NONE SEEN | (missing) | (missing) | | #/area UrnS | 09:: | [facility] | | | | | HPF | [facility] | | | | + + + + + + + + + | Result panel 38 | + + + + + + + + + | Casts | 2025-01-03 | | NONE SEEN | (missing) | (missing) | | #/area UrnS | ::07 | [facility] | | | | | LPF | [facility] | | [facility] | | | | + + + + + + + + + | Result panel 39 | + + + + + +------+ + + | Bacteria Ur | 2025-01-03 | | No | (missing) | (missing) | | Cult | :21:07 | [facility] | | | | | [facility] | | | | + + + +------+ + + + + | Result panel 40 | + + + + + + + + + | Urn Spec | 2025-01-03 | | CLEAN CATCH | (missing) | (missing) | | Collect Meth | 09:21:07 | [facility] | | | | | Ur | [facility] | [facility] | | | | + + + + + + + + + | Result panel 41 | + + + + + + [...] 42 | + + + + + + + + + | | 2025-03-12 | | NORMAL | (missing) | (missing) | | Urobilinogen | 14:00:07 | [facility] | | | | | Ur | | - | | | | | [facility]-[place] | | [facility] | | | | + + + + + + + + + | Result panel 43 | + + + + + + [...] 44 | + + + + + + [...] 45 | + + + + + +--------+ [...] 47 | + + + + + + [...] + + + + | Result panel 48 | + + + + + + + + + | Crystals | 2025-03-12 | | NONE SEEN | (missing) | (missing) | | Danya Micro | 14:00:07 | [facility] | | | | | [facility] | [facility] | | | | + + + + + + + + + | Result panel 49 | + + + + + + [...] 50 | + + + + + + [...] 51 | + + + + + +------+ [...] 52 | + + + + + +---------+ [...] + + + + | Result panel 53 | + + + + + + + + + | Urn Spec | 2025-03-12 | | CLEAN CATCH | (missing) | (missing) | | Collect Meth | 14:: | [facility] | | | | | Ur | [facility] | [facility] | | | | + + + + + + + + + | Result panel 54 | + + + + + + [...] 55 | + + + + + + [...] 56 | + + + + + + + + + | Ketones Michael | 2025-03-12 | | NEGATIVE | (missing) [...] 58 | + + + + + + + + + | Hgb Ur Ql | 2025-03-12 | | MODERATE | (missing) | (missing) | | Strip | 14::07 | [facility] | | | | [facility] | | | | + + + + + + + + + | Result panel 59 | + + + + + +-------+ [...] 60 | + + + + + + + + + | Prot Ur | 2025-03-12 | | NEGATIVE | (missing) | (missing) | | [facility] | 14:00:07 | [facility] | | | [...] date) | Unknown if ever smoked | [facility] | | | | [facility] | + + + + | (no date) | Unknown if ever smoked | [facility] | | | | [facility] | + + + + Vital Signs + + + +---------+ | date | measurement | value | units | + + + +---------+ | 2025-01-03 00:00 | BMI | 20.7 | kg/m2 | + + + +---------+ | 2025-01-03 00:00 | BP_diastolic | 72 | mmHg | + + + +---------+ | 2025-01-03 00:00 | BP_systolic | 106 | mmHg | + + + +---------+ | 2025-01-03 00:00 | heart_rate | 75 | /min | + + + +---------+ | 2025-01-03 00:00 | height_metric | 162.56 | cm | + + + +---------+ | 2025-01-03 00:00 | height_standard | 64 | in | + + + +---------+ | 2025-01-03 00:00 | o2_saturation | 98 | % | + + + +---------+ | 2025-01-03 00:00 | respiration_rate | 15 | /min | + + + +---------+ | 2025-01-03 00:00 | temperature_metric | 36.72 | C | | | | | | + + + +---------+ | 2025-01-03 00:00 | | 98.1 | F | | | temperature_standar | | | | | d | | | + + + +---------+ | 2025-01-03 00:00 | weight_metric | 54.74 | kg | + + + +---------+ | 2025-01-03 00:00 | weight_standard | 120.68 | lb | + + + +---------+ | 2025-01-03 00:00 | weight_standard | 120.681 | lb | + + + +---------+ | 2025-03-12 [...] 120.681 | lb | + + + +---------+"
--- OUTSIDE RECORDS SUMMARY | 2025-03-30 17:19 | XMS ---
PreManage Notification: ISIDRO CAGE [employer] Events No recent Security Events currently on file CRITERIA MET - 6 ED Visits in 6 Months - [facility] - 2 Visits in 30 Days CARE PROVIDERS -[facility] Dentist: [facility] Current [place] PHONE: [phone] -[facility] Dentist: [facility] Current Aga PHONE: [phone] -[facility]- Dentist: [facility] Current [facility] PHONE: [phone] MARILYNN OJEDA Physician Assistant Guerline Moran PHONE: Unknown [facility]> PHONE: [phone] Apolinar has no Care Guidelines for this patient. [place] VISIT COUNT (12 MO.) 7 [facility] TOTAL 11 NOTE: Visits indicate total known visits. ED/UCC VISIT TRACKING (12 MO.) 03/30/2025 17:13 [facility] [place] TYPE: Emergency COMPLAINT: - HIP INJURY 03/12/2025 13:27 [facility] [place] TYPE: Emergency COMPLAINT: - BLOOD IN URINE DIAGNOSES: - Hematuria, unspecified - Hormone replacement therapy - Hypothyroidism, unspecified - Other oil heaterman (current) drug therapy - Other microscopic hematuria 01/03/2025 08:04 [facility] [place] TYPE: Emergency COMPLAINT: - URINE PROBLEM DIAGNOSES: - Asymptomatic microscopic hematuria - Hematuria, unspecified - Obstructive sleep apnea (adult) (pediatric) - Other oil heaterman (current) drug therapy - Post-traumatic stress disorder, unspecified - Sleep apnea, unspecified 12/17/2024 10:44 [facility] [place] TYPE: Emergency COMPLAINT: - SKIN PROBLEM DIAGNOSES: - Hypothyroidism, unspecified - senior care (current) use of inhaled steroids - Other shelter (current) drug therapy - Post-traumatic stress disorder, unspecified - Pressure ulcer of left buttock, unspecified stage - Pressure ulcer of right buttock, unspecified stage - Unspecified abdominal pain 12/06/2024 08:[address] 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 [place] TYPE: Emergency COMPLAINT: - SOB,CHEST PAIN DIAGNOSES: - Chest pain, unspecified - Hypothyroidism, unspecified - senior care (current) use of inhaled steroids - Other shelter (current) drug therapy - Post-traumatic stress disorder, unspecified - Urinary tract infection, site not specified 10/19/2024 13:[address] [facility] [place] TYPE: Emergency COMPLAINT: - WEAKNESS DIAGNOSES: - Hypothyroidism, unspecified - senior care (current) use of inhaled steroids - Other fatigue - Other shelter (current) drug therapy - Post-traumatic stress disorder, unspecified - Weakness 09/27/2024 05:40 [facility] TYPE: Emergency DIAGNOSES: - Pneumonia, unspecified organism - ABD PAIN 09/08/2024 02:48 [facility] [place] TYPE: Emergency DIAGNOSES: - Pleural effusion, not elsewhere classified - Single subsegmental thrombotic pulmonary embolism without acute cor pulmonale - abd pain - general 08/29/2024 04:53 [facility] [place] TYPE: Emergency DIAGNOSES: - Down syndrome, unspecified - Personal history of other mental and behavioral disorders - Pneumonitis due to inhalation of food and vomit - Shortness of Breath 06/06/2024 15:40 [facility] [place] TYPE: Emergency DIAGNOSES: - Acute gastritis without bleeding - Nausea with vomiting, unspecified - FEVER VOMITING INPATIENT VISIT TRACKING (12 MO.) [facility] 10[facility] COMPLAINT: - aspiration PNAw/ [...] to milk products 9. Hormone replacement therapy [email or web address]
[2025-03-30] MEDS ORDERED: CETIRIZINE HCL10 MG PO (17:45)
[2025-03-30] MEDS ORDERED: ONDANSETRON ODT8 MG PO (17:48)
[2025-03-30 18:23] LABS: BASOPHILS 1.2 % (0.2-1.2); EOSINOPHILS 1.6 % (0.8-7.0); LYMPHOCYTES 22.9 % (21.8-53.1); MCH 28.9 PG (25.7-32.2); MCHC 32.5 g/dL (32.3-36.5); MCV 89.1 fL (79.0-92.2); MONOCYTES 9.3 % (5.3-12.2); NEUTROPHILS 64.0 % (34.0-67.9); RBC 4.70 M/uL (4.63-6.08)
[2025-03-30 18:49] LABS: ALT (SGPT) 8.0 U/L (14-59); AST (SGOT) 11.0 U/L (15-37); GLOMERULAR FILTRATION RATE,EST 76.0 mL/min (>60); PROTEIN, TOTAL 6.4 g/dL (6.4-8.2); TSH, 3RD GENERATION 0.136 uIU/mL (0.358-3.740); UREA NITROGEN 18.0 mg/dL (7-18)
[2025-03-30] MEDS ORDERED: SODIUM CHLORIDE 0.9% 1,000 ML IV PRN (19:15)
[2025-03-30 20:21] LABS: BLOOD/HGB, URINE NEGATIVE (Negative); KETONE, URINE TRACE (Negative); LEUK ESTERASE, URINE NEGATIVE (negative); NITRITE, URINE NEGATIVE (negative)
[2025-03-30 22:13] VITALS: BP 130/93
== END 2025-03-30 22:27 | disposition home or self-care (01) ==
LOC: ED 17:12
PROVIDERS: Emergency Medicine
DX: E86.0 Dehydration (principal); F43.10 Post-traumatic stress disorder, unspecified; G47.30 Sleep apnea, unspecified; Z79.899 Other long term (current) drug therapy
CPT/HCPCS: 36415; 70450; 71045; 80053; 81003; 82140; 84436; 84439; 84443; 85025; 99285-25; J7030

== ENCOUNTER 2025-04-13 16:47 | Emergency (ER) | payer MEDICARE, OTHER ==
[~2025-04-13] VITALS: Ht 162.6 cm; Wt 49.0 kg
--- OUTSIDE RECORDS SUMMARY | ~2025-04-13 | XMS | Continuity of Care Document ---
Demographics + + + | Address | [address] | | | [place] [address] | + + + | Preferred Language | Unknown | + + + | Marital Status | Never | + + + | Mosque Affiliation | Unknown | + + + | Race | White | + + + | Ethnic Group | Not or | + + + Author + + + | Author | [facility] | + + + | Organization | [facility] | + + + | Address | [address] | | | [place] [address] | + + + | Phone | | + + + Care Team Providers + + + + | Care Library Assistant Name | Role | Phone | + [...] | (no date) | CETIRIZINE HCL | [facility] | | | | [facility] | + + + + | (no date) | ONDANSETRON | [facility] | | | | [facility] | + + + + | (no date) | ONDANSETRON | [facility] | | | | [facility] | + + + + | (no date) | ONDANSETRON | [facility] | | | | [facility] | + + + + | (no date) | KETOCONAZOLE | [facility] | | | | [facility] | + + + + | (no date) | KETOCONAZOLE | [facility] | | | | [facility] | + + + + | (no date) | KETOCONAZOLE | [facility] | | | | [facility] | + + + + | (no date) | | [facility] | | | CARBOXYMETHYL/GLYCERIN/POLY | [facility] | | | 80 | | + + + + | (no date) | | [facility] | | | CARBOXYMETHYL/GLYCERIN/POLY | [facility] | | | 80 | | + + + + | (no date) | | [facility] | | | CARBOXYMETHYL/GLYCERIN/POLY | [facility] | | | 80 | | + + + + | (no date) | APIXABAN | [facility] | | | | [facility] | + + + + | (no date) | APIXABAN | [facility] | | | | [facility] | + + + + | (no date) | APIXABAN | [facility] | | | | [facility] | + + + + | (no date) | Ergocalciferol (Vitamin | [facility] | | | D2) | [facility] | + + + + | (no date) | Ergocalciferol (Vitamin | [facility] | | | D2) | [facility] | + + + + | (no date) | Ergocalciferol (Vitamin | [facility] | | | D2) | [facility] | + + + + | (no date) | FLUTICASONE PROPIONATE 50 | [facility] | | | MCG | [facility] | + + + + | (no date) | FLUTICASONE PROPIONATE 50 | [facility] | | | MCG | [facility] | + + + + | (no date) | FLUTICASONE PROPIONATE 50 | [facility] | | | MCG | [facility] | + + + + | (no date) | IBUPROFEN | [facility] | | | | [facility] | + + + + | (no date) | IBUPROFEN | [facility] | | | | [facility] | + + + + | (no date) | IBUPROFEN | [facility] | | | | [facility] | + + + + | (no date) | MONTELUKAST SODIUM | [facility] | | | | [facility] | + + + + | (no date) | MONTELUKAST SODIUM | [facility] | | | | [facility] | + + + + | (no date) | MONTELUKAST SODIUM | [facility] | | | | [facility] | + + + + | (no date) | BETAMETHASONE DIPROPIONATE | [facility] | | | | [facility] | + + + + | (no date) | BETAMETHASONE DIPROPIONATE | [facility] | | | | [facility] | + + + + | (no date) | BETAMETHASONE DIPROPIONATE | [facility] | | | | [facility] | + + + + | (no date) | Clotrimazole | [facility] | | | | [facility] | + + + + | (no date) | Clotrimazole | [facility] | | | | [facility] | + + + + | (no date) | Clotrimazole | [facility] | | | | [facility] | + + + + | (no date) | LORATADINE | [facility] | | | | [facility] | + + + + | (no date) | LORATADINE | [facility] | | | | [facility] | + + + + | (no date) | LORATADINE | [facility] | | | | [facility] | + + + + | (no date) | METRONIDAZOLE | [facility] | | | | [facility] | + + + + | (no date) | METRONIDAZOLE | [facility] | | | | [facility] | + + + + | (no date) | METRONIDAZOLE | [facility] | | | | [facility] | + + + + | (no date) | ONDANSETRON | [facility] | | | | [facility] | + + + + | (no date) | RISPERIDONE | [facility] | | | | [facility] | + + + + | (no date) | RISPERIDONE | [facility] | | | | [facility] | + + + + | (no date) | RISPERIDONE | [facility] | | | | [facility] | + + + + | (no date) | SERTRALINE HCL | [facility] | | | | [facility] | + + + + | (no date) | SERTRALINE HCL | [facility] | | | | [facility] | + + + + | (no date) | SERTRALINE HCL | [facility] | | | | [facility] | + + + + | (no date) | TOLNAFTATE | [facility] | | | | [facility] | + + + + | (no date) | TOLNAFTATE | [facility] | | | | [facility] | + + + + | (no date) | TOLNAFTATE | [facility] | | | | [facility] | + + + + | (no date) | Tolreynoldftate | [facility] | | | | [facility] | + + + + | (no date) | Tolnaftate | [facility] | | | | [facility] | + + + + | (no date) | Tolnaftate | [facility] | | | | [facility] | + + + + | (no date) | Calcium Carbonate/Vitamin | [facility] | | | D3 | [facility] | + + + + | (no date) | Calcium Carbonate/Vitamin | [facility] | | | D3 | [facility] | + + + + | (no date) | Calcium Carbonate/Vitamin | [facility] | | | D3 | [facility] | + + + + | (no date) | SODIUM FLUORIDE | [facility] | | | | [facility] | + + + + | (no date) | SODIUM FLUORIDE | [facility] | | | | [facility] | + + + + | (no date) | SODIUM FLUORIDE | [facility] | | | | [facility] | + + + + | (no date) | CARBAMIDE PEROXIDE | [facility] | | | | [facility] | + + + + | (no date) | CARBAMIDE PEROXIDE | [facility] | | | | [facility] | + + + + | (no date) | CARBAMIDE PEROXIDE | [facility] | | | | [facility] | + + + + | (no date) | LEVOTHYROXINE SODIUM | [facility] | | | | [facility] | + + + + | (no ) | LEVOTHYROXINE SODIUM | [facility] | | | | [facility] | + + + + | (no date) | LEVOTHYROXINE SODIUM | [facility] | | | | [facility] | + + + + | (no date) | LEVOTHYROXINE SODIUM | [facility] | | | | [facility] | + + + + | (no date) | LEVOTHYROXINE SODIUM | [facility] | | | | [facility] | + + + + | (no date) | LEVOTHYROXINE SODIUM | [facility] | | | | [facility] | + + + + | (no date) | DONEPEZIL HCL | [facility] | | | | [facility] | + + + + | (no date) | DONEPEZIL HCL | [facility] | | | | [facility] | + + + + | (no date) | DONEPEZIL HCL | [facility] | | | | [facility] | + + + + Problems + + + + | date | description | facility | + + + + | 2025-03-30 00:00 | Dehydration | [facility] | | | | [facility] | + + + + Procedures No [...] 2 | + + + + + + [...] 5 | + + + + + +--------+ [...] 6 | + + + + + +-------+ [...] 7 | + + + + + + [...] 11 | + + + + + +------+ [...] 12 | + + + + + +---------+ [...] 14 | + + + + + + [...] + + + | Bilirub Ur | 2025-03-12 | | NEGATIVE | [...] + + + | Ketones Ur | 2025-03-12 | | NEGATIVE | [...] 17 | + + + + + +---------+ + + | Sp Gr Ur | 2025-03-12 | | 1.025 | (missing) | (missing) | | Strip | 14:00: | [facility] | | | | | | | - | | | | | | [facility] | | | | + + + +---------+ + + + + | Result panel 18 | + + + + + +--------+ [...] 19 | + + + + + +-------+ [...] (missing) | | Strip | 14:00:07 | [facility] | | | | - | | | | | | | [facility] | | | | + + + + + + + + + | Result panel 22 | + + + + + + + + + | Crystals | 2025-03-12 | | NONE SEEN | (missing) | (missing) | | [facility] | 14:00:07 | [facility] | | [...] | (missing) | (missing) | | #/area MichaelnS | 14:00:07 | [facility] | | | [...] 25 | + + + + + +------+ [...] 27 | + + + + + +-------+ [...] 31 | + + + + + +--------+ + + | Hgb | 2025-03-30 | | 13.6 | (missing) | (missing) | | Bld-mCnc | 18:15:07 | [facility] | | | [...] 34 | + + + + + +--------+ [...] 35 | + + + + + +--------+ [...] 37 | + + + + + +--------+ [...] 38 | + + + + + +--------+ [...] 39 | + + + + + +-------+ [...] 40 | + + + + + +-------+ [...] 41 | + + + + + +-------+ [...] 42 | + + + + + +------+---------+ + | Glucose | 2025-03-30 | | 97 | mg/dL | (missing) | | [facility] | 18:15:07 | [facility] | [facility] | | | | + + + +------+---------+ + + + | Result panel 43 | + + + + + +------+---------+ + | BUN | 2025-03-30 | | 18 | mg/dL | (missing) | | [facility] | 18:15:07 | [facility] | | | | + + + +------+---------+ + + + | Result panel 44 | + + + + + +--------+---------+ + | Creat | 2025-03-30 | | 1.12 | mg/dL | (missing) | | [facility] | 18:15:07 | [facility] | | | | | | | - | | | | | | | [facility] | | | | + + + +--------+---------+ + + + | Result panel 45 [...] 46 | + + + + + +---------+ [...] 47 | + + + + + +-------+ [...] 105 | (missing) | (missing) | | SerPl-sCnc | 18:15:07 | [facility] | | | | + + + +-------+ + + + + | Result panel 50 | + + + + + +------+ [...] 51 | + + + + + +-------+ [...] 53 | + + + + + +-------+ + + | Prot | 2025-03-30 | | 6.4 | (missing) | (missing) | | [facility] | 18:15:07 | [facility] | | [facility] | | | | + + + +-------+ + + + + | Result panel 54 | + + + + + +-------+ + + | Albumin | 2025-03-30 | | 2.7 | (missing) | (missing) | | SerPl-mCnc | 18:15:07 | [facility] | | | | + + + +-------+ + + + + | Result panel 55 | + + + + + +-------+ + + | Globulin | 2025-03-30 | | 3.7 | (missing) | (missing) | | Ser-mCnc | 18:15:07 | [facility] | | | | + + + +-------+ + + + + | Result panel 56 | + + + + + +--------+ [...] 57 | + + + + + +-------+---------+ [...] +-------+---------+ + + + | Result panel 58 | + + + + + +------+ + + | AST | 2025-03-30 | | 11 | (missing) | (missing) | | SerPl-cCnc | 18:15:07 | [facility] | | | | + + + +------+ + + + + | Result panel 59 | + + + + + +-----+ [...] 60 | + + + + + +------+ [...] 61 | + + + + + +-------+ [...] 62 | + + + + + +---------+ + + | TSH SerPl | 2025-03-30 | | 0.136 | (missing) | (missing) | | DL<=0.005 | 18:15:07 | [facility] | | | | | NoniU/L-aCn | | - | | | | [...] + + + + + | Courtney Ur | 2025-03-30 | | POSITIVE | [...] + + +---------+ + + | Sp Frank Ur | 2025-03-30 | | 1.015 | [...] | Unknown if ever smoked | [facility] | | | | [facility] | + + + + | (no date) | Unknown if ever smoked | [facility] | | | | [facility] | + + + + | (no date) | Unknown if ever smoked | [facility] | | | | [facility] | + + + + Vital Signs [...] 115.743 | lb | + + + +---------+"
[~2025-04-13 16:47] MED LIST changes: +CETIRIZINE HCL10 MG PO; +ONDANSETRON ODT8 MG PO
--- OUTSIDE RECORDS SUMMARY | 2025-04-13 16:54 | XMS ---
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 Events No recent Security Events currently on file CRITERIA MET - 6 ED Visits in 6 Months - [facility] - 2 Visits in 30 Days CARE PROVIDERS -[facility] Dentist: Automotive Worker Foreman Current [place] PHONE: [phone] -[facility]+ Dentist: Automotive Worker Foreman Current [place]ga PHONE: [phone] -[facility]- Dentist: Automotive Worker Foreman Current [facility] PHONE: [phone] MARILYNN OJEDA Physician Assistant Guerline Moran PHONE: Unknown [facility] PHONE: [phone] Apolinar has no Care Guidelines for this patient. [place] VISIT COUNT (12 MO.) 8 [facility] TOTAL 12 NOTE: Visits indicate total known visits. ED/UCC VISIT TRACKING (12 MO.) 04/13/2025 16:[address] [facility] [place] TYPE: Emergency COMPLAINT: - WEAKNESS 03/30/2025 17:13 [facility] [place] TYPE: Emergency COMPLAINT: - HIP PAIN DIAGNOSES: - Altered mental status, unspecified - Dehydration - Other outsole compressor (current) drug therapy - Post-traumatic stress disorder, unspecified - Sleep apnea, unspecified 03/12/2025 13:27 [facility] [place] TYPE: Emergency COMPLAINT: - BLOOD IN URINE DIAGNOSES: - Hematuria, unspecified - Hormone replacement therapy - Hypothyroidism, unspecified - Other prison (current) drug therapy - Other microscopic hematuria 01/03/2025 08:04 [facility] [place] TYPE: Emergency COMPLAINT: - URINE PROBLEM DIAGNOSES: - Asymptomatic microscopic hematuria - Hematuria, unspecified - Obstructive sleep apnea (adult) (pediatric) - Other outsole compressor (current) drug therapy - Post-traumatic stress disorder, unspecified - Sleep apnea, unspecified 12/17/2024 10:44 [facility] [place] TYPE: Emergency COMPLAINT: - SKIN PROBLEM DIAGNOSES: - Hypothyroidism, unspecified - nutrition specialist (current) use of inhaled steroids - Other outsole compressor (current) drug therapy - Post-traumatic stress disorder, [...] Chest pain, unspecified - Hypothyroidism, unspecified - nursing home (current) use of inhaled steroids - Other prison (current) drug therapy - Post-traumatic stress disorder, unspecified - Urinary tract infection, site not specified 10/19/2024 13:43 [facility] [place] TYPE: Emergency COMPLAINT: - WEAKNESS DIAGNOSES: - Hypothyroidism, unspecified - nutrition specialist (current) use of inhaled steroids - Other fatigue - Other prison (current) drug therapy - Post-traumatic stress disorder, unspecified - Weakness 09/27/2024 05:40 [facility] [place] TYPE: Emergency DIAGNOSES: - Pneumonia, unspecified organism - ABD PAIN 09/08/2024 02:48 [facility] [place] TYPE: Emergency DIAGNOSES: - Pleural effusion, not elsewhere classified - Single subsegmental thrombotic pulmonary embolism without acute cor pulmonale - abd pain - general 08/29/2024 04:53 [facility] [place] TYPE: Emergency DIAGNOSES: - Down syndrome, unspecified - Personal history of other mental and behavioral disorders - Pneumonitis due to inhalation of food and vomit - Shortness of Breath 06/06/2024 15:40 [facility] [place] TYPE: Emergency DIAGNOSES: - Acute gastritis without bleeding - Nausea with vomiting, unspecified - FEVER VOMITING INPATIENT VISIT TRACKING (12 MO.) 08/29/2024 10:10 [facility] [place] TYPE: Medical Surgical COMPLAINT: - aspiration PNAw/ [...] to milk products 9. Hormone replacement therapy [email or web address]
[2025-04-13 17:49] LABS: BASOPHILS 1.0 % (0.2-1.2); EOSINOPHILS 1.1 % (0.8-7.0); LYMPHOCYTES 16.2 % (21.8-53.1); MCH 29.1 PG (25.7-32.2); MCHC 32.5 g/dL (32.3-36.5); MCV 89.5 fL (79.0-92.2); MONOCYTES 8.4 % (5.3-12.2); NEUTROPHILS 72.5 % (34.0-67.9); RBC 4.85 M/uL (4.63-6.08)
[2025-04-13] MEDS ORDERED: SODIUM CHLORIDE 0.9% 1,000 ML IV PRN (18:15)
[2025-04-13 18:17] LABS: ALT (SGPT) 6.0 U/L (14-59); AST (SGOT) 15.0 U/L (15-37); GLOMERULAR FILTRATION RATE,EST 72.0 mL/min (>60); PROTEIN, TOTAL 6.8 g/dL (6.4-8.2); UREA NITROGEN 15.0 mg/dL (7-18)
[2025-04-13 18:18] LABS: TSH, 3RD GENERATION 0.384 uIU/mL (0.358-3.740)
[2025-04-13 18:45] LABS: CORONAVIRUS COVID-19 AG NEGATIVE (NEGATIVE)
[2025-04-13 19:26] VITALS: BP 128/79
== END 2025-04-13 19:26 | disposition home or self-care (01) ==
LOC: ED 16:47
PROVIDERS: Emergency Medicine
DX: B34.9 Viral infection, unspecified (principal); F43.10 Post-traumatic stress disorder, unspecified; E03.9 Hypothyroidism, unspecified; Z79.899 Other long term (current) drug therapy
CPT/HCPCS: 36415; 80053; 83735; 84436; 84439; 84443; 84484; 85025; 86850; 86900; 86901; 99284; J7030

== ENCOUNTER 2025-05-23 20:31 | Emergency (ER) | payer MEDICARE, OTHER ==
[~2025-05-23] VITALS: Ht 162.6 cm; Wt 51.7 kg
--- OUTSIDE RECORDS SUMMARY | ~2025-05-23 | XMS | Continuity of Care Document ---
Demographics + + + | Address | [address] | | | [place] [address] | + + + | Preferred Language | Unknown | + + + | Marital Status | Never | + + + | Bahai Affiliation | Unknown | + + + | Race | White | + + + | Ethnic Group | Not or | + + + Author + + + | Author | [facility] | + + + | Organization | [facility] | + + + | Address | [address] | | | [place] [address] | + + + | Phone | | + + + Care Team Providers + + + + | Care Pie Chef Name | Role | Phone | + + + + Unavailable | Unavailable | + + + + Unavailable | Unavailable | + + + + Unavailable | Unavailable | + + + + Unavailable | Unavailable | + + + + Allergies and Intolerances + + + + + + | date | description | facility | reaction | severity | + + + + + + | 2025-03-30 | UNK | [facility] | (no reaction) | (no severity) | | 00:00 | [facility] | | | + + + + + + | 2025-04-13 | UNK | [facility] - | (no reaction) | (no severity) | | 00:00 | | [facility] | | | + + + + + + Encounters No information. Functional Status No information. Immunizations No information. Medications + + + + | date | description | facility | + + + + | (no date) | CETIRIZINE HCL | [facility] | | | | [facility] | + + + + | (no date) | CETIRIZINE HCL | [facility] | | | | [facility] | + + + + | (no date) | ONDANSETRON | [facility] | | | | [facility] | + + + + | (no date) | ONDANSETRON | [facility] | | | | [facility] | + + + + | (no date) | ONDANSETRON | [facility] | | | | [facility] | + + + + | (no date) | KETOCONAZOLE | [facility] | | | | [facility] | + + + + | (no date) | KETOCONAZOLE | [facility] | | | | [facility] | + + + + | (no date) | KETOCONAZOLE | [facility] | | | | [facility] | + + + + | (no date) | | [facility] | | | CARBOXYMETHYL/GLYCERIN/POLY | [facility] | | | 80 | | + + + + | (no date) | | [facility] | | | CARBOXYMETHYL/GLYCERIN/POLY | [facility] | | | 80 | | + + + + | (no date) | | [facility] | | | CARBOXYMETHYL/GLYCERIN/POLY | [facility] | | | 80 | | + + + + | (no date) | APIXABAN | [facility] | | | | [facility] | + + + + | (no date) | APIXABAN | [facility] | | | | [facility] | + + + + | (no date) | APIXABAN | [facility] | | | | [facility] | + + + + | (no date) | Ergocalciferol (Vitamin | [facility] | | | D2) | [facility] | + + + + | (no date) | Ergocalciferol (Vitamin | [facility] | | | D2) | [facility] | + + + + | (no date) | Ergocalciferol (Vitamin | [facility] | | | D2) | [facility] | + + + + | (no date) | FLUTICASONE PROPIONATE 50 | [facility] | | | MCG | [facility] | + + + + | (no date) | FLUTICASONE PROPIONATE 50 | [facility] | | | MCG | [facility] | + + + + | (no date) | FLUTICASONE PROPIONATE 50 | [facility] | | | MCG | [facility] | + + + + | (no date) | IBUPROFEN | [facility] | | | | [facility] | + + + + | (no date) | IBUPROFEN | [facility] | | | | [facility] | + + + + | (no date) | IBUPROFEN | [facility] | | | | [facility] | + + + + | (no date) | MONTELUKAST SODIUM | [facility] | | | | [facility] | + + + + | (no date) | MONTELUKAST SODIUM | [facility] | | | | [facility] | + + + + | (no date) | MONTELUKAST SODIUM | [facility] | | | | [facility] | + + + + | (no date) | BETAMETHASONE DIPROPIONATE | [facility] | | | | [facility] | + + + + | (no date) | BETAMETHASONE DIPROPIONATE | [facility] | | | | [facility] | + + + + | (no date) | BETAMETHASONE DIPROPIONATE | [facility] | | | | [facility] | + + + + | (no date) | Clotrimazole | [facility] | | | | [facility] | + + + + | (no date) | Clotrimazole | [facility] | | | | [facility] | + + + + | (no date) | Clotrimazole | [facility] | | | | [facility] | + + + + | (no date) | LORATADINE | [facility] | | | | [facility] | + + + + | (no date) | LORATADINE | [facility] | | | | [facility] | + + + + | (no date) | LORATADINE | [facility] | | | | [facility] | + + + + | (no date) | METRONIDAZOLE | [facility] | | | | [facility] | + + + + | (no date) | METRONIDAZOLE | [facility] | | | | [facility] | + + + + | (no date) | METRONIDAZOLE | [facility] | | | | [facility] | + + + + | (no date) | ONDANSETRON | [facility] | | | | [facility] | + + + + | (no date) | ONDANSETRON | [facility] | | | | [facility] | + + + + | (no date) | RISPERIDONE | [facility] | | | | [facility] | + + + + | (no date) | RISPERIDONE | [facility] | | | | [facility] | + + + + | (no date) | RISPERIDONE | [facility] | | | | [facility] | + + + + | (no date) | SERTRALINE HCL | [facility] | | | | [facility] | + + + + | (no date) | SERTRALINE HCL | [facility] | | | | [facility] | + + + + | (no date) | SERTRALINE HCL | [facility] | | | | [facility] | + + + + | (no date) | TOLNAFTATE | [facility] | | | | [facility] | + + + + | (no date) | TOLNAFTATE | [facility] | | | | [facility] | + + + + | (no date) | TOLNAFTATE | [facility] | | | | [facility] | + + + + | (no date) | Tolnaftate | [facility] | | | | [facility] | + + + + | (no date) | Tolnaftate | [facility] | | | | [facility] | + + + + | (no date) | Tolnaftate | [facility] | | | | [facility] | + + + + | (no date) | Calcium Carbonate/Vitamin | [facility] | | | D3 | [facility] | + + + + | (no date) | Calcium Carbonate/Vitamin | [facility] | | | D3 | [facility] | + + + + | (no date) | Calcium Carbonate/Vitamin | [facility] | | | D3 | [facility] | + + + + | (no date) | SODIUM FLUORIDE | [facility] | | | | [facility] | + + + + | (no date) | SODIUM FLUORIDE | [facility] | | | | [facility] | + + + + | (no date) | SODIUM FLUORIDE | [facility] | | | | [facility] | + + + + | (no date) | CARBAMIDE PEROXIDE | [facility] | | | | [facility] | + + + + | (no date) | CARBAMIDE PEROXIDE | [facility] | | | | [facility] | + + + + | (no date) | CARBAMIDE PEROXIDE | [facility] | | | | [facility] | + + + + | (no date) | LEVOTHYROXINE SODIUM | [facility] | | | | [facility] | + + + + | (no ) | LEVOTHYROXINE SODIUM | [facility] | | | | [facility] | + + + + | (no date) | LEVOTHYROXINE SODIUM | [facility] | | | | [facility] | + + + + | (no ) | LEVOTHYROXINE SODIUM | [facility] | | | | [facility] | + + + + | (no date) | LEVOTHYROXINE SODIUM | [facility] | | | | [facility] | + + + + | (no ) | LEVOTHYROXINE SODIUM | [facility] | | | | [facility] | + + + + | (no date) | DONEPEZIL HCL | [facility] | | | | [facility] | + + + + | (no date) | DONEPEZIL HCL | [facility] | | | | [facility] | + + + + | (no date) | DONEPEZIL HCL | [facility] | | | | [facility] | + + + + Problems + + + + | date | description | facility | + + + + | 2025-03-30 00:00 | Dehydration | [facility] | | | | [facility] | + + + + | 2025-03-30 00:00 | Dehydration | [facility] | | | | [facility] | + + + + | 2025-04-13 00:00 | Viral infection | [facility] | | | | [facility] | + + + + Procedures No information. Results/Labs +--------+--------+ +---------+--------+---------+ | test | date | facility | value | unit | notes | +--------+--------+ +---------+--------+---------+ + + | Result panel 1 | + + + + + +--------+ + + | RBC #/area | 2025-03-12 | | 7-11 | (missing) | (missing) | | UrnS HPF | 14:00:07 | [facility] | | | | + + + +--------+ + + + + | Result panel 2 | + + + + + +-------+ + + | WBC #/area | 2025-03-12 | | 0-1 | (missing) | (missing) | | UrnS [facility] | 14:00:07 | [facility] | | | | + + + +-------+ + + + + | Result panel 3 | + + + + + + + + + | Epi Cells | 2025-03-12 | | SQUAMOUS 1+ | (missing) | (missing) | | #/area UrnS | 14:00:07 | [facility] | | | | | H[facility] | | | | + + + + + + + + + | Result panel 4 | + + + + + + + + + | Crystals | 2025-03-12 | | NONE SEEN | (missing) | (missing) | | UrnS Micro | 14:00:07 | [facility] | | | | + + + + + + + + + | Result panel 5 | + + + + + + + + + | Bacteria | 2025-03-12 | | NONE SEEN | (missing) | (missing) | | #/area Danya | 14:00:07 | [facility] | | | | | [facility] | | | | + + + + + + + + + | Result panel 6 | + + + + + + + + + | Casts | 2025-03-12 | | NONE SEEN | (missing) | (missing) | | #/area UrnS | 14:00:07 | [facility] | | | | | L[facility] | | | | + + + + + + + + + | Result panel 7 | + + + + + +------+ + + | Bacteria Ur | 2025-03-12 | | No | (missing) | (missing) | | Cult | 14:00:07 | [facility] | | | | + + + +------+ + + + + | Result panel 8 | + + + + + + + + + | Urn Spec | 2025-03-12 | | CLEAN CATCH | (missing) | (missing) | | Collect Meth | 14:00:07 | [facility] | | | | | Ur | [facility] | | | | + + + + + + + + + | Result panel 9 | + + + + + + + + + | Color Ur | 2025-03-12 | | YELLOW | (missing) | (missing) | | Auto | 14:00:07 | [facility] | | | | + + + + + + + + + | Result panel 10 | + + + + + +---------+ + + | Character | 2025-03-12 | | CLEAR | (missing) | (missing) | | Ur | 14:00:07 | [facility] | | | | + + + +---------+ + + + + | Result panel 11 | + + + + + + + + + | Glucose Ur | 2025-03-12 | | NEGATIVE | (missing) | (missing) | | Ql Strip | 14:00:07 | [facility] | | | | + + + + + + + + + | Result panel 12 | + + + + + + + + + | Bilalexis Rodriguez | 2025-03-12 | | NEGATIVE | (missing) | (missing) | | Ql Strip | 14:00:07 | [facility] | | | | + + + + + + + + + | Result panel 13 | + + + + + + + + + | Ketonemaxnie Rodriguez | 2025-03-12 | | NEGATIVE | (missing) | (missing) | | Ql Strip | 14:00:07 | [facility] | | | | + + + + + + + + + | Result panel 14 | + + + + + +---------+ + + | Sp Gr Ur | 2025-03-12 | | 1.025 | (missing) | (missing) | | Strip | 14:00:07 | [facility] | | | | + + + +---------+ + + + + | Result panel 15 | + + + + + + + + + | Hgb Ur Ql | 2025-03-12 | | MODERATE | (missing) | (missing) | | Strip | 14:00:07 | [facility] | | | | + + + + + + + + + | Result panel 16 | + + + + + +-------+ + + | pH Ur Strip | 2025-03-12 | | 6.0 | (missing) | (missing) | | | 14:00:07 | [facility] | | | | + + + +-------+ + + + + | Result panel 17 | + + + + + + + + + | Prot Ur | 2025-03-12 | | NEGATIVE | (missing) | (missing) | | Strip-mCnc | 14:00:07 | [facility] | | | | + + + + + + + + + | Result panel 18 | + + + + + + + + + | | 2025-03-12 | | NORMAL | (missing) | (missing) | | Urobilinogen | 14:00:07 | [facility] | | | | | Ur | [facility] Strip-m[facility]nc | | [facility] | | | | + + + + + + + + + | Result panel 19 | + + + + + + + + + | Nitrite Ur | 2025-03-12 | | NEGATIVE | (missing) | (missing) | | Ql Strip | 14:00:07 | [facility] | | | | + + + + + + + + + | Result panel 20 | + + + + + + + + + | Leukocyte | 2025-03-12 | | NEGATIVE | (missing) | (missing) | | esterase Ur | 14:00:07 | [facility] | | | | | Ql Strip | [facility] | | | | + + + + + + + + + | Result panel 21 | + + + + + +--------+ + + | RBC #/area | 2025-03-12 | | 7-11 | (missing) | (missing) | | [facility] | 14:00:07 | [facility] | | | | + + + +--------+ + + + + | Result panel 22 | + + + + + +-------+ + + | WBC #/area | 2025-03-12 | | 0-1 | (missing) | (missing) | | UrnS HPF | 14:00:07 | [facility] | | | | + + + +-------+ + + + + | Result panel 23 | + + + + + + + + + | Epi Cells | 2025-03-12 | | SQUAMOUS 1+ | (missing) | (missing) | | #/area UrnS | 14:00:07 | [facility] | | | | | [facility] | | | | + + + + + + + + + | Result panel 24 | + + + + + + + + + | Crystals | 2025-03-12 | | NONE SEEN | (missing) | (missing) | | UrnS Micro | 14:00:07 | [facility] | | | | + + + + + + + + + | Result panel 25 | + + + + + + + + + | Bacteria | 2025-03-12 | | NONE SEEN | (missing) | (missing) | | #/area UrnS | 14:00:07 | [facility] | | | | | [facility] | | | | + + + + + + + + + | Result panel 26 | + + + + + + + + + | Casts | 2025-03-12 | | NONE SEEN | (missing) | (missing) | | #/area UrnS | 14:00:07 | [facility] | | | | | L[facility] | | | | + + + + + + + + + | Result panel 27 | + + + + + +------+ + + | Bacteria Ur | 2025-03-12 | | No | (missing) | (missing) | | Cult | 14:00:07 | [facility] | | | | + + + +------+ + + + + | Result panel 28 | + + + + + + + + + | Urn Spec | 2025-03-12 | | CLEAN CATCH | (missing) | (missing) | | Collect Meth | 14:00:07 | [facility] | | | | | Ur | [facility] | | | | + + + + + + + + + | Result panel 29 | + + + + + +--------+ + + | MCH RBC Qn | 2025-03-30 | | 28.9 | (missing) | (missing) | | Auto | 18:15:07 | [facility] | | | | + + + +--------+ + + + + | Result panel 30 | + + + + + +--------+ + + | MCHC RBC | 2025-03-30 | | 32.5 | (missing) | (missing) | | Auto-EntMCnc | 18:15:07 | [facility] | | | | + + + +--------+ + + + + | Result panel 31 | + + + + + +-------+ + + | Platelet # | 2025-03-30 | | 185 | (missing) | (missing) | | Bld Auto | 18:15:07 | [facility] | | | | + + + +-------+ + + + + | Result panel 32 | + + + + + +--------+ + + | Neutrophils | 2025-03-30 | | 64.0 | (missing) | (missing) | | NFr Bld | 18:15:07 | [facility] | | | | | Auto | [facility] | | | | + + + +--------+ + + + + | Result panel 33 | + + + + + +--------+ + + | Lymphocytes | 2025-03-30 | | 22.9 | (missing) | (missing) | | NFr Bld | 18:15:07 | [facility] | | | | | Auto | [facility] | | | | + + + +--------+ + + + + | Result panel 34 | + + + + + +-------+ + + | Monocytes | 2025-03-30 | | 9.3 | (missing) | (missing) | | NFr Bld Auto | 18:15:07 | [facility] | | | | + + + +-------+ + + + + | Result panel 35 | + + + + + +-------+ + + | Eosinophil | 2025-03-30 | | 1.6 | (missing) | (missing) | | NFr Bld Auto | 18:15:07 | [facility] | | | | + + + +-------+ + + + + | Result panel 36 | + + + + + +-------+ + + | Basophils | 2025-03-30 | | 1.2 | (missing) | (missing) | | NFr Bld Auto | 18:15:07 | [facility] | | | | | | | - | | | | | | | [facility] | | | | + + + +-------+ + + + + | Result panel 37 | + + + + + +------+---------+ + | Glucose | 2025-03-30 | | 97 | mg/dL | (missing) | | SerPl-[facility] | 18:15:07 | [facility] | | | | | | | - | | | | | | | [facility] | | | | + + + +------+---------+ + + + | Result panel 38 | + + + + + +------+---------+ + | BUN | 2025-03-30 | | 18 | mg/dL | (missing) | | [facility] | 18:15:07 | [facility] | | | | + + + +------+---------+ + + + | Result panel 39 | + + + + + +--------+---------+ + | Creat | 2025-03-30 | | 1.12 | mg/dL | (missing) | | [facility] | 18:15:07 | [facility] | | | | + + + +--------+---------+ + + + | Result panel 40 | + + + + + +------+ + + | eGFRcr | 2025-03-30 | | 76 | (missing) | (missing) | | SerPlBld | 18:15:07 | [facility] | | | | | CKD-EPI 2020 | [facility] | | | | + + + +------+ + + + + | Result panel 41 | + + + + + +---------+ + + | BUN/Creat | 2025-03-30 | | 16.07 | (missing) | (missing) | | SerPl | 18:15:07 | [facility] | | | | | [facility] | | | | + + + +---------+ + + + + | Result panel 42 | + + + + + +-------+ + + | Sodium | 2025-03-30 | | 146 | (missing) | (missing) | | SerPl-sCnc | 18:15:07 | [facility] | | | | [facility] | | | | + + + +-------+ + + + + | Result panel 43 | + + + + + +-------+ + + | Potassium | 2025-03-30 | | 3.5 | (missing) | (missing) | | SerPl-sCnc | 18:15:07 | [facility] | | | | | [facility] | | | | + + + +-------+ + + + + | Result panel 44 | + + + + + +-------+ + + | Chloride | 2025-03-30 | | 105 | (missing) | (missing) | | SerPl-[facility] | 18:15:07 | [facility] | | | | + + + +-------+ + + + + | Result panel 45 | + + + + + +------+ + + | CO2 | 2025-03-30 | | 35 | (missing) | (missing) | | SerPl-sCnc | 18:15:07 | [facility] | | | [facility] | | | | + + + +------+ + + + + | Result panel 46 | + + + + + +-------+ + + | Anion Gap | 2025-03-30 | | 9.5 | (missing) | (missing) | | SerPl | 18:15:07 | [facility] | | | | | Calculated.4 | [facility] | | [facility] | | [facility] | | | | + + + +-------+ + + + + | Result panel 47 | + + + + + +-------+---------+ + | Calcium | 2025-03-30 | | 8.7 | mg/dL | (missing) | | SerPl-mCnc | 18:15:07 | [facility] | | | | | | [facility] | | [facility] | | | | + + + +-------+---------+ + + + | Result panel 48 | + + + + + +-------+ + + | Prot | 2025-03-30 | | 6.4 | (missing) | (missing) | | SerPl-mCnc | 18:15:07 | [facility] | | | | + + + +-------+ + + + + | Result panel 49 | + + + + + +-------+ + + | Albumin | 2025-03-30 | | 2.7 | (missing) | (missing) | | [facility] | 18:15:07 | [facility] | | | | | [facility] | | | | + + + +-------+ + + + + | Result panel 50 | + + + + + +-------+ + + | Globulin | 2025-03-30 | | 3.7 | (missing) | (missing) | | Ser-mCstephanie | 18:15:07 | [facility] | | | [facility] | | | | + + + +-------+ + + + + | Result panel 51 | + + + + + +--------+ + + | | 2025-03-30 | | 0.73 | (missing) | (missing) | | Albumin/Glob | 18:15:07 | [facility] | [facility] | | | | + + + +--------+ + + + + | Result panel 52 | + + + + + +-------+---------+ + | Bilirub | 2025-03-30 | | 0.4 | mg/dL | (missing) | | SerPl-m[facility]nc | 18:15:07 | [facility] | | | | + + + +-------+---------+ + + + | Result panel 53 | + + + + + +------+ + + | AST | 2025-03-30 | | 11 | (missing) | (missing) | | [facility] | 18:15:07 | [facility] | | | | + + + +------+ + + + + | Result panel 54 | + + + + + +-----+ + + | ALT | 2025-03-30 | | 8 | (missing) | (missing) | | Ser[facility] | 18:15:07 | [facility] | | | | + + + +-----+ + + + + | Result panel 55 | + + + + + +------+ + + | ALP | 2025-03-30 | | 73 | (missing) | (missing) | | Ser[facility]-c[facility] | 18:15:07 | [facility] | | | | + + + +------+ + + + + | Result panel 56 | + + + + + +-------+ + + | Ammonia | 2025-03-30 | | <10 | (missing) | (missing) | | Plas-sCnc | 18:15:07 | [facility] | | | | + + + +-------+ + + + + | Result panel 57 | + + + + + +---------+ + + | TSH SerPl | 2025-03-30 | | 0.136 | (missing) | (missing) | | DL<=0.005 | 18:15:07 | [facility] | | | | | [facility] | | [facility] | | | | + + + +---------+ + + + + | Result panel 58 | + + + + + +--------+ + + | WBC # Bld | 2025-03-30 | | 5.16 | (missing) | (missing) | | Auto | 18:15:07 | [facility] | [facility] | | | | + + + +--------+ + + + + | Result panel 59 | + + + + + +--------+ + + | RBC # Bld | 2025-03-30 | | 4.70 | (missing) | (missing) | | Auto | 18:15:07 | [facility] | | | | + + + +--------+ + + + + | Result panel 60 | + + + + + +--------+ + + | Hgb | 2025-03-30 | | 13.6 | (missing) | (missing) | | Bld-Irving | 18:15:07 | [facility] | | | | + + + +--------+ + + + + | Result panel 61 | + + + + + +--------+ + + | Hct VFr.DF | 2025-03-30 | | 41.9 | (missing) | (missing) | | Bld Auto | 18:15:07 | [facility] | | | | + + + +--------+ + + + + | Result panel 62 | + + + + + +--------+ + + | RBC Auto | 2025-03-30 | | 89.1 | (missing) | (missing) | | | 18:15:07 | [facility] | | | | + + + +--------+ + + + + | Result panel 63 | + + + + + + + + + | Color Ur | 2025-03-30 | | YELLOW | (missing) | (missing) | | Auto | 20:15:07 | [facility] | | | | + + + + + + + + + | Result panel 64 | + + + + + +---------+ + + | Character | 2025-03-30 | | CLEAR | (missing) | (missing) | | Ur | 20:15:07 | [facility] | | | | + + + +---------+ + + + + | Result panel 65 | + + + + + + + + + | Glucose Ur | 2025-03-30 | | NEGATIVE | (missing) | (missing) | | Ql Strip | 20:15:07 | [facility] | | | | + + + + + + + + + | Result panel 66 | + + + + + + + + + | Bilirub Ur | 2025-03-30 | | POSITIVE | (missing) | (missing) | | Ql Strip | 20:15:07 | [facility] | | | | + + + + + + + + + | Result panel 67 | + + + + + +---------+ + + | Ketones Ur | 2025-03-30 | | TRACE | (missing) | (missing) | | Ql Strip | 20:15:07 | [facility] | | | | + + + +---------+ + + + + | Result panel 68 | + + + + + +---------+ + + | Sp Gr Ur | 2025-03-30 | | 1.015 | (missing) | (missing) | | Strip | 20:15:07 | [facility] | | | | + + + +---------+ + + + + | Result panel 69 | + + + + + + + + + | Hgb Ur Ql | 2025-03-30 | | NEGATIVE | (missing) | (missing) | | Strip | 20:15:07 | [facility] | | | | + + + + + + + + + | Result panel 70 | + + + + + +-------+ + + | pH Ur Strip | 2025-03-30 | | 6.5 | (missing) | (missing) | | | 20:15:07 | [facility] | | | | + + + +-------+ + + + + | Result panel 71 | + + + + + + + + + | Prot Ur | 2025-03-30 | | NEGATIVE | (missing) | (missing) | | Strip-mCnc | 20:15:07 | [facility] | | | | + + + + + + + + + | Result panel 72 | + + + + + + + + + | | 2025-03-30 | | NORMAL | (missing) | (missing) | | Urobilinogen | 20:15:07 | [facility] | | | | | Ur | [facility] Strip-m[facility]nc | | [facility] | | | | + + + + + + + + + | Result panel 73 | + + + + + + + + + | Nitrite Ur | 2025-03-30 | | NEGATIVE | (missing) | (missing) | | Ql Strip | 20:15:07 | [facility] | | | | + + + + + + + + + | Result panel 74 | + + + + + + + + + | Leukocyte | 2025-03-30 | | NEGATIVE | (missing) | (missing) | | esterase Ur | 20:15:07 | [facility] | | | | | Ql Strip | [facility] | | | | + + + + + + + + + | Result panel 75 | + + + + + +--------+ + + | WBC # Bld | 2025-04-13 | | 7.12 | (missing) | (missing) | | Auto | 17:40:08 | [facility] | | | | + + + +--------+ + + + + | Result panel 76 | + + + + + +--------+ + + | Lymphocytes | 2025-04-13 | | 16.2 | (missing) | (missing) | | NFr Bld | 17:40:08 | [facility] | | | | | Auto | [facility] | | | | + + + +--------+ + + + + | Result panel 77 | + + + + + +-------+ + + | Monocytes | 2025-04-13 | | 8.4 | (missing) | (missing) | | NFr Bld Auto | 17:40:08 | [facility] | | | | + + + +-------+ + + + + | Result panel 78 | + + + + + +-------+ + + | Eosinophil | 2025-04-13 | | 1.1 | (missing) | (missing) | | NFr Bld Auto | 17:40:08 | [facility] | | | | + + + +-------+ + + + + | Result panel 79 | + + + + + +-------+ + + | Basophils | 2025-04-13 | | 1.0 | (missing) | (missing) | | NFr Bld Auto | 17:40:08 | [facility] | | | | + + + +-------+ + + + + | Result panel 80 | + + + + + +-------+---------+ + | Glucose | 2025-04-13 | | 103 | mg/dL | (missing) | | SerPl-mCnc | 17:40:08 | [facility] | | | | + + + +-------+---------+ + + + | Result panel 81 | + + + + + +------+---------+ + | BUN | 2025-04-13 | | 15 | mg/dL | (missing) | | SerPl-mCnc | 17:40:08 | [facility] | | | | + + + +------+---------+ + + + | Result panel 82 | + + + + + +--------+---------+ + | Creat | 2025-04-13 | | 1.17 | mg/dL | (missing) | | Georgie-mCstephanie | 17:40:08 | [facility] | [facility] | | | | + + + +--------+---------+ + + + | Result panel 83 | + + + + + +------+ + + | eGFRcr | 2025-04-13 | | 72 | (missing) | (missing) | | SerPlBld | 17:40:08 | [facility] | | | | | CKD-EPI 2020 | [facility] | | | | + + + +------+ + + + + | Result panel 84 | + + + + + +---------+ + + | BUN/Creat | 2025-04-13 | | 12.82 | (missing) | (missing) | | SerPl | 17:40:08 | [facility] | | | | + + + +---------+ + + + + | Result panel 85 | + + + + + +-------+ + + | Sodium | 2025-04-13 | | 142 | (missing) | (missing) | | SerPl-[facility] | 17:40:08 | [facility] | | | | + + + +-------+ + + + + | Result panel 86 | + + + + + +--------+ + + | RBC # Bld | 2025-04-13 | | 4.85 | (missing) | (missing) | | Auto | 17:40:08 | [facility] | | | | + + + +--------+ + + + + | Result panel 87 | + + + + + +-------+ + + | Potassium | 2025-04-13 | | 2.9 | (missing) | (missing) | | SerPl-sCnc | 17:40:08 | [facility] | | | | + + + +-------+ + + + + | Result panel 88 | + + + + + +-------+ + + | Chloride | 2025-04-13 | | 103 | (missing) | (missing) | | SerPl-sCnc | 17:40:08 | [facility] | | | | + + + +-------+ + + + + | Result panel 89 | + + + + + +------+ + + | CO2 | 2025-04-13 | | 27 | (missing) | (missing) | | SerPl-sCnc | 17:40:08 | [facility] | | | | + + + +------+ + + + + | Result panel 90 | + + + + + +--------+ + + | Anion Gap | 2025-04-13 | | 14.9 | (missing) | (missing) | | SerPl | 17:40:08 | [facility] | | | | | Calculated.4 | [facility] Ions-sCnc | | [facility] | | | | + + + +--------+ + + + + | Result panel 91 | + + + + + +-------+---------+ + | Calcium | 2025-04-13 | | 8.8 | mg/dL | (missing) | | SerPl-mCnc | 17:40:08 | [facility] | | | | + + + +-------+---------+ + + + | Result panel 92 | + + + + + +-------+---------+ + | Magnesium | 2025-04-13 | | 1.7 | mg/dL | (missing) | | [facility]ie-[facility] | 17:40:08 | [facility] | | | | + + + +-------+---------+ + + + | Result panel 93 | + + + + + +-------+ + + | Prot | 2025-04-13 | | 6.8 | (missing) | (missing) | | SerPl-mCstephanie | 17:40:08 | [facility] | [facility] | | | | + + + +-------+ + + + + | Result panel 94 | + + + + + +-------+ + + | Albumin | 2025-04-13 | | 2.9 | (missing) | (missing) | | [facility] | 17:40:08 | [facility] | | | | + + + +-------+ + + + + | Result panel 95 | + + + + + +-------+ + + | Globulin | 2025-04-13 | | 3.9 | (missing) | (missing) | | Ser-mCnc | 17:40:08 | [facility] | | | | + + + +-------+ + + + + | Result panel 96 | + + + + + +--------+ + + | | 2025-04-13 | | 0.74 | (missing) | (missing) | | Albumin/Glob | 17:40:08 | [facility] | | | | | SerPl | [facility] | | | | + + + +--------+ + + + + | Result panel 97 | + + + + + +--------+ + + | Hgb | 2025-04-13 | | 14.1 | (missing) | (missing) | | Bld-mCnc | 17:40:08 | [facility] | | | | + + + +--------+ + + + + | Result panel 98 | + + + + + +-------+---------+ + | Bilirub | 2025-04-13 | | 0.7 | mg/dL | (missing) | | SerPl-mCnc | 17:40:08 | [facility] | | | | + + + +-------+---------+ + + + | Result panel 99 | + + + + + +------+ + + | AST | 2025-04-13 | | 15 | (missing) | (missing) | | SerPl-cCnc | 17:40:08 | [facility] | | | | + + + +------+ + + + + | Result panel 100 | + + + + + +-----+ + + | ALT | 2025-04-13 | | 6 | (missing) | (missing) | | SerPl-cCnc | 17:40:08 | [facility] | | | | + + + +-----+ + + + + | Result panel 101 | + + + + + +------+ + + | ALP | 2025-04-13 | | 74 | (missing) | (missing) | | SerPl-cCnc | 17:40:08 | [facility] | | | | + + + +------+ + + + + | Result panel 102 | + + + + + +--------+ + + | Troponin I | 2025-04-13 | | 12.7 | (missing) | (missing) | | SerPl | 17:40:08 | [facility] | | | | | HS-mCnc [facility] | | | | + + + +--------+ + + + + | Result panel 103 | + + + + + +---------+ + + | TSH SerPl | 2025-04-13 | | 0.384 | (missing) | (missing) | | DL<=0.005 | 17:40:08 | [facility] | | | | | mIU/L-aCnc [facility] | | | | + + + +---------+ + + + + | Result panel 104 | + + + + + +--------+ + + | WBC # Bld | 2025-04-13 | | 7.12 | (missing) | (missing) | | Auto | 17:40:08 | [facility] | | | | + + + +--------+ + + + + | Result panel 105 | + + + + + +--------+ + + | RBC # Bld | 2025-04-13 | | 4.85 | (missing) | (missing) | | Auto | 17:40:08 | [facility] | | | | + + + +--------+ + + + + | Result panel 106 | + + + + + +--------+ + + | Hct VFr.DF | 2025-04-13 | | 43.4 | (missing) | (missing) | | Bld Auto | 17:40:08 | [facility] | | | | + + + +--------+ + + + + | Result panel 107 | + + + + + +--------+ + + | Hgb | 2025-04-13 | | 14.1 | (missing) | (missing) | | Bld-mCnc | 17:40:08 | [facility] | | | | + + + +--------+ + + + + | Result panel 108 | + + + + + +--------+ + + | Hct VFr.DF | 2025-04-13 | | 43.4 | (missing) | (missing) | | Bld Auto | 17:40:08 | [facility] | | | | + + + +--------+ + + + + | Result panel 109 | + + + + + +--------+ + + | RBC Auto | 2025-04-13 | | 89.5 | (missing) | (missing) | | | 17:40:08 | [facility] | | | | + + + +--------+ + + + + | Result panel 110 | + + + + + +--------+ + + | MCH RBC Qn | 2025-04-13 | | 29.1 | (missing) | (missing) | | Auto | 17:40:08 | [facility] | | | | + + + +--------+ + + + + | Result panel 111 | + + + + + +--------+ + + | MCHC RBC | 2025-04-13 | | 32.5 | (missing) | (missing) | | Auto-EntMCnc | 17:40:08 | [facility] | | | | + + + +--------+ + + + + | Result panel 112 | + + + + + +-------+ + + | Platelet # | 2025-04-13 | | 217 | (missing) | (missing) | | Bld Auto | 17:40:08 | [facility] | | | | + + + +-------+ + + + + | Result panel 113 | + + + + + +--------+ + + | Neutrophils | 2025-04-13 | | 72.5 | (missing) | (missing) | | NFr Bld | 17:40:08 | [facility] | | | | | Auto | [facility] | | | | + + + +--------+ + + + + | Result panel 114 | + + + + + +--------+ + + | Lymphocytes | 2025-04-13 | | 16.2 | (missing) | (missing) | | NFr Bld | 17:40:08 | [facility] | | | | | Auto | [facility] | | | | + + + +--------+ + + + + | Result panel 115 | + + + + + +-------+ + + | Monocytes | 2025-04-13 | | 8.4 | (missing) | (missing) | | NFr Bld Auto | 17:40:08 | [facility] | | | | + + + +-------+ + + + + | Result panel 116 | + + + + + +-------+ + + | Eosinophil | 2025-04-13 | | 1.1 | (missing) | (missing) | | NFr Bld Auto | 17:40:08 | [facility] | | | | + + + +-------+ + + + + | Result panel 117 | + + + + + +--------+ + + | RBC Auto | 2025-04-13 | | 89.5 | (missing) | (missing) | | | 17:40:08 | [facility] | | | | + + + +--------+ + + + + | Result panel 118 | + + + + + +-------+ + + | Basophils | 2025-04-13 | | 1.0 | (missing) | (missing) | | NFr Bld Auto | 17:40:08 | [facility] | | | | + + + +-------+ + + + + | Result panel 119 | + + + + + +-------+---------+ + | Glucose | 2025-04-13 | | 103 | mg/dL | (missing) | | SerPl-mCnc | 17:40:08 | [facility] | [facility] | | | | + + + +-------+---------+ + + + | Result panel 120 | + + + + + +------+---------+ + | BUN | 2025-04-13 | | 15 | mg/dL | (missing) | | SerPl-mCnc | 17:40:08 | [facility] | | | | + + + +------+---------+ + + + | Result panel 121 | + + + + + +--------+---------+ + | Creat | 2025-04-13 | | 1.17 | mg/dL | (missing) | | SerPl-mCnc | 17:40:08 | [facility] | | | | + + + +--------+---------+ + + + | Result panel 122 | + + + + + +------+ + + | eGFRcr | 2025-04-13 | | 72 | (missing) | (missing) | | SerPlBld | 17:40:08 | [facility] | | | | | CKD-EPI 2020 | [facility] | | | | + + + +------+ + + + + | Result panel 123 | + + + + + +---------+ + + | BUN/Creat | 2025-04-13 | | 12.82 | (missing) | (missing) | | SerPl | 17:40:08 | [facility] | | | | + + + +---------+ + + + + | Result panel 124 | + + + + + +-------+ + + | Sodium | 2025-04-13 | | 142 | (missing) | (missing) | | SerPl-sCnc | 17:40:08 | [facility] | | | | + + + +-------+ + + + + | Result panel 125 | + + + + + +-------+ + + | Potassium | 2025-04-13 | | 2.9 | (missing) | (missing) | | SerPl-sCnc | 17:40:08 | [facility] | | | | + + + +-------+ + + + + | Result panel 126 | + + + + + +-------+ + + | Chloride | 2025-04-13 | | 103 | (missing) | (missing) | | SerPl-sCnc | 17:40:08 | [facility] | | | | + + + +-------+ + + + + | Result panel 127 | + + + + + +------+ + + | CO2 | 2025-04-13 | | 27 | (missing) | (missing) | | SerPl-sCnc | 17:40:08 | [facility] | | | | + + + +------+ + + + + | Result panel 128 | + + + + + +--------+ + + | MCH RBC Qn | 2025-04-13 | | 29.1 | (missing) | (missing) | | Auto | 17:40:08 | [facility] | | | | + + + +--------+ + + + + | Result panel 129 | + + + + + +--------+ + + | Anion Gap | 2025-04-13 | | 14.9 | (missing) | (missing) | | SerPl | 17:40:08 | [facility] | | | | | Calculated.4 | [facility] | [facility]-s[facility]nc | | [facility] | | | | + + + +--------+ + + + + | Result panel 130 | + + + + + +-------+---------+ + | Calcium | 2025-04-13 | | 8.8 | mg/dL | (missing) | | SerPl-mCnc | 17:40:08 | [facility] | | | | + + + +-------+---------+ + + + | Result panel 131 | + + + + + +-------+---------+ + | Magnesium | 2025-04-13 | | 1.7 | mg/dL | (missing) | | SerPl-mCnc | 17:40:08 | [facility] | | [facility] | | | | + + + +-------+---------+ + + + | Result panel 132 | + + + + + +-------+ + + | Prot | 2025-04-13 | | 6.8 | (missing) | (missing) | | SerPl-mCstephanie | 17:40:08 | [facility] | | [facility] | | | | + + + +-------+ + + + + | Result panel 133 | + + + + + +-------+ + + | Albumin | 2025-04-13 | | 2.9 | (missing) | (missing) | | SerPmary-Irving | 17:40:08 | [facility] | | | | + + + +-------+ + + + + | Result panel 134 | + + + + + +-------+ + + | Globulin | 2025-04-13 | | 3.9 | (missing) | (missing) | | Ser-Irving | 17:40:08 | [facility] | | | | + + + +-------+ + + + + | Result panel 135 | + + + + + +--------+ + + | | 2025-04-13 | | 0.74 | (missing) | (missing) | | Albumin/Glob | 17:40:08 | [facility] | | | | | SerPl | [facility] | | | | + + + +--------+ + + + + | Result panel 136 | + + + + + +-------+---------+ + | Courtney | 2025-04-13 | | 0.7 | mg/dL | (missing) | | SerPl-mCnc | 17:40:08 | [facility] | | | | + + + +-------+---------+ + + + | Result panel 137 | + + + + + +------+ + + | AST | 2025-04-13 | | 15 | (missing) | (missing) | | SerPl-cCnc | 17:40:08 | [facility] | | | | + + + +------+ + + + + | Result panel 138 | + + + + + +-----+ + + | ALT | 2025-04-13 | | 6 | (missing) | (missing) | | SerPl-cCnc | 17:40:08 | [facility] | | | | + + + +-----+ + + + + | Result panel 139 | + + + + + +--------+ + + | MCHC RBC | 2025-04-13 | | 32.5 | (missing) | (missing) | | Auto-EntMCnc | 17:40:08 | [facility] | | | | + + + +--------+ + + + + | Result panel 140 | + + + + + +------+ + + | ALP | 2025-04-13 | | 74 | (missing) | (missing) | | SerPl-cCnc | 17:40:08 | [facility] | | | | + + + +------+ + + + + | Result panel 141 | + + + + + +--------+ + + | Troponin I | 2025-04-13 | | 12.7 | (missing) | (missing) | | SerPl | 17:40:08 | [facility] | | | | | HS[facility]mCnc [facility] | | | | + + + +--------+ + + + + | Result panel 142 | + + + + + +---------+ + + | TSH SerPl | 2025-04-13 | | 0.384 | (missing) | (missing) | | DL<=0.005 | 17:40:08 | [facility] | | [facility] | | | | + + + +---------+ + + + + | Result panel 143 | + + + + + +-------+ + + | Platelet # | 2025-04-13 | | 217 | (missing) | (missing) | | Bld Auto | 17:40:08 | [facility] | | | | + + + +-------+ + + + + | Result panel 144 | + + + + + +--------+ + + | Neutrophils | 2025-04-13 | | 72.5 | (missing) | (missing) | | NFr Bld | 17:40:08 | [facility] | | | | | Auto | [facility] | | | | + + + +--------+ + + + + | Result panel 145 | + + + + + + + + + | | 2025-04-13 | | NEGATIVE | (missing) | (missing) | | SARS-CoV+MYRANDA | 18:22:08 | [facility] | | | | | S-CoV-2 Ag | [facility] | | [facility] | | | | + + + + + + + + + | Result panel 146 | + + + + + + + + + | Annotation | 2025-04-13 | | SEE BELOW | (missing) | (missing) | | comment Imp | 18:22:08 | [facility] | | | | + + + + + + + + + | Result panel 147 | + + + + + + + + + | | 2025-04-13 | | NEGATIVE | (missing) | (missing) | | SARS-CoV+MYRANDA | 18:22:08 | [facility] | | | | | S-CoV-2 Ag | [facility] | [facility] | | | | + + + + + + + + + | Result panel 148 | + + + + + + + + + | Annotation | 2025-04-13 | | SEE BELOW | (missing) | (missing) | | comment Imp | 18:22:08 | [facility] | | | | + + + + + + + Social History + + + + | date | description | facility | + + + + | (no date) | Unknown if ever smoked | [facility] | + + + + | (no date) | Unknown if ever smoked | [facility] | + + + + | (no date) | Unknown if ever smoked | [facility] | + + + + Vital Signs + + + +---------+ | date | measurement | value | units | + + + +---------+ | 2025-03-12 00:00 | BMI | 20.7 | kg/m2 | + + + +---------+ | 2025-03-12 00:00 | BP_diastolic | 83 | mmHg | + + + +---------+ | 2025-03-12 00:00 | BP_systolic | 105 | mmHg | + + + +---------+ | 2025-03-12 00:00 | heart_rate | 63 | /min | + + + +---------+ | 2025-03-12 00:00 | height_metric | 162.56 | cm | + + + +---------+ | 2025-03-12 00:00 | height_standard | 64 | in | + + + +---------+ | 2025-03-12 00:00 | o2_saturation | 100 | % | + + + +---------+ | 2025-03-12 00:00 | respiration_rate | 14 | /min | + + + +---------+ | 2025-03-12 00:00 | | 97.5 | F | | | temperature_standar | | | | | d | | | + + + +---------+ | 2025-03-12 00:00 | weight_metric | 54.74 | kg | + + + +---------+ | 2025-03-12 00:00 | weight_standard | 120.681 | lb | + + + +---------+ | 2025-03-30 00:00 | BMI | 19.9 | kg/m2 | + + + +---------+ | 2025-03-30 00:00 | BP_diastolic | 93 | mmHg | + + + +---------+ | 2025-03-30 00:00 | BP_systolic | 130 | mmHg | + + + +---------+ | 2025-03-30 00:00 | heart_rate | 76 | /min | + + + +---------+ | 2025-03-30 00:00 | height_metric | 162.56 | cm | + + + +---------+ | 2025-03-30 00:00 | height_standard | 64 | in | + + + +---------+ | 2025-03-30 00:00 | o2_saturation | 99 | % | + + + +---------+ | 2025-03-30 00:00 | respiration_rate | 16 | /min | + + + +---------+ | 2025-03-30 00:00 | | 97.5 | F | | | temperature_standar | | | | | d | | | + + + +---------+ | 2025-03-30 00:00 | weight_metric | 52.5 | kg | + + + +---------+ | 2025-03-30 00:00 | weight_standard | 115.743 | lb | + + + +---------+ | 2025-04-13 00:00 | BMI | 18.5 | kg/m2 | + + + +---------+ | 2025-04-13 00:00 | BP_diastolic | 79 | mmHg | + + + +---------+ | 2025-04-13 00:00 | BP_systolic | 128 | mmHg | + + + +---------+ | 2025-04-13 00:00 | heart_rate | 69 | /min | + + + +---------+ | 2025-04-13 00:00 | height_metric | 162.56 | cm | + + + +---------+ | 2025-04-13 00:00 | height_standard | 64 | in | + + + +---------+ | 2025-04-13 00:00 | o2_saturation | 100 | % | + + + +---------+ | 2025-04-13 00:00 | respiration_rate | 16 | /min | + + + +---------+ | 2025-04-13 00:00 | | 97.8 | F | | | temperature_standar | | | | | d | | | + + + +---------+ | 2025-04-13 00:00 | weight_metric | 48.999 | kg | + + + +---------+ | 2025-04-13 00:00 | weight_standard | 108.025 | lb | + + + +---------+"
--- OUTSIDE RECORDS SUMMARY | 2025-05-23 20:38 | XMS ---
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 Clinic/Center: [facility] Qualified [facility] Current WORKERS CL[facility]IC [facility] ([facility]) <UNAVAIL> PHONE: [phone] Apolinar has no Care Guidelines for this patient. [place] VISIT COUNT (12 MO.) 9 [facility] TOTAL 13 NOTE: Visits indicate total known visits. ED/UCC VISIT TRACKING (12 MO.) 05/23/2025 20:[address] [facility] [place] TYPE: Emergency COMPLAINT: - URINE ISSUES 04/13/2025 16:48 [facility] [place] TYPE: Emergency COMPLAINT: - WEAKNESS DIAGNOSES: - Hypothyroidism, unspecified - Other jail (current) drug therapy - Post-traumatic stress disorder, unspecified - Unspecified abdominal pain - Viral infection, unspecified 03/30/2025 17:[address] [facility] [place] TYPE: Emergency COMPLAINT: - HIP PAIN DIAGNOSES: - Altered mental status, unspecified - Dehydration - Other jail (current) drug therapy - Post-traumatic stress disorder, unspecified - Sleep apnea, unspecified 03/12/2025 13:[address] [facility] [place] TYPE: Emergency COMPLAINT: - BLOOD IN URINE DIAGNOSES: - Hematuria, unspecified - Hormone replacement therapy - Hypothyroidism, unspecified - Other jail (current) drug therapy - Other microscopic hematuria 01/03/2025 08:04 [facility] [place] TYPE: Emergency COMPLAINT: - URINE PROBLEM DIAGNOSES: - Asymptomatic microscopic hematuria - Hematuria, unspecified - Obstructive sleep apnea (adult) (pediatric) - Other jail (current) drug therapy - Post-traumatic stress disorder, unspecified - Sleep apnea, unspecified 12/17/2024 10:44 [facility] [place] TYPE: Emergency COMPLAINT: - SKIN PROBLEM DIAGNOSES: - Hypothyroidism, unspecified - salvage determiner (current) use of inhaled steroids - Other terminal superintendent (current) drug therapy - Post-traumatic stress disorder, [...] Chest pain, unspecified - Hypothyroidism, unspecified - salvage determiner (current) use of inhaled steroids - Other jail (current) drug therapy - Post-traumatic stress disorder, unspecified - Urinary tract infection, site not specified 10/19/2024 13:43 [facility] [place] TYPE: Emergency COMPLAINT: - WEAKNESS DIAGNOSES: - Hypothyroidism, unspecified - salvage determiner (current) use of inhaled steroids - Other fatigue - Other jail (current) drug therapy - Post-traumatic stress disorder, unspecified - Weakness 09/27/2024 05:40 [facility] [place] TYPE: Emergency DIAGNOSES: - Pneumonia, unspecified organism - ABD PAIN 09/08/2024 02:48 [facility] [place] TYPE: Emergency DIAGNOSES: - Pleural effusion, not elsewhere classified - Single subsegmental thrombotic pulmonary embolism without acute cor pulmonale - abd pain - general 08/29/2024 04:53 [facility] [place] TYPE: Emergency DIAGNOSES: - Down syndrome, unspecified - Personal history of other mental and behavioral disorders - Pneumonitis due to inhalation of food and vomit - Shortness of Breath 06/06/2024 15:40 [facility] [place] TYPE: Emergency DIAGNOSES: - Acute gastritis without bleeding - Nausea with vomiting, unspecified - FEVER VOMITING INPATIENT VISIT TRACKING (12 MO.) 08/29/2024 10:10 Nancy [facility]UEL TYPE: Medical Surgical COMPLAINT: - aspiration PNAw/ [...] to milk products 9. Hormone replacement therapy [email or web address]
[2025-05-23] MEDS ORDERED: MEMANTINE HCL5 MG PO (22:20)
[2025-05-23] MEDS ORDERED: LACTATED RINGER'S 1,000 ML IV ONE (22:30)
[2025-05-23 23:01] LABS: BASOPHILS 1.1 % (0.2-1.2); EOSINOPHILS 0.9 % (0.8-7.0); LYMPHOCYTES 27.7 % (21.8-53.1); MCH 30.1 PG (25.7-32.2); MCHC 33.2 g/dL (32.3-36.5); MCV 90.4 fL (79.0-92.2); MONOCYTES 10.0 % (5.3-12.2); NEUTROPHILS 59.8 % (34.0-67.9); RBC 4.39 M/uL (4.63-6.08)
[2025-05-24 00:04] LABS: ALT (SGPT) 8.0 U/L (14-59); AST (SGOT) 12.0 U/L (15-37); GLOMERULAR FILTRATION RATE,EST 95.0 mL/min (>60); PROTEIN, TOTAL 5.9 g/dL (6.4-8.2); UREA NITROGEN 10.0 mg/dL (7-18)
[2025-05-24 02:53] LABS: BLOOD/HGB, URINE NEGATIVE (Negative); KETONE, URINE NEGATIVE (Negative); LEUK ESTERASE, URINE NEGATIVE (negative); NITRITE, URINE NEGATIVE (negative)
[2025-05-24] MEDS ORDERED: LEVOTHYROXINE SODIUM 150 MCG TAB PO ONE (03:00)
[2025-05-24] MEDS ORDERED: LEVOTHYROXINE200 MC2 PO (03:07)
[2025-05-24 03:48] VITALS: BP 112/70
== END 2025-05-24 03:58 | disposition home or self-care (01) ==
LOC: ED 20:31
PROVIDERS: Family Medicine
DX: E03.9 Hypothyroidism, unspecified (principal); F02.80 Dementia in other diseases classified elsewhere, unspecified severity, without behavioral disturbance, psychotic disturbance, mood disturbance, and anxiety; F43.10 Post-traumatic stress disorder, unspecified; G47.30 Sleep apnea, unspecified; Z91.0110 Allergy to milk products, unspecified; Z79.899 Other long term (current) drug therapy
CPT/HCPCS: 36415; 51701; 51798; 70450; 71045; 80053; 81003; 82803; 83735; 84436; 84439; 84443; 85025; 99284-25; J7121